=== PATIENT | male | born 1965 | race Caucasian/White ===

== ENCOUNTER 2025-04-12 13:06 | Inpatient (IN) | payer OTHER, SELFPAY ==
[2025-04-12 09:50] VITALS: BP 139/84
[2025-04-12 10:17] LABS: Hematocrit 37.2 % (39.0-52.0); Hemoglobin 12.0 g/dL (13.0-18.0); Mean Corp Hgb Conc. 32.3 g/dL (33.0-37.0); Mean Corpuscular Volume 77.2 fL (80.0-94.0); Nucleated Red Blood Cells % 0 % (-); Platelet Count 166 10^3/uL (130-400); Red Cell Dist. Width 20.8 % (11.5-14.5)
[2025-04-12 10:45] VITALS: BP 120/77
[2025-04-12 10:45] LABS: ALT (SGPT) 10 U/L (0-50); AST (SGOT) 15 U/L (17-59); Albumin 4.3 g/dl (3.5-5.0); Alkaline Phosphatase 84 U/L (38-126); Blood Urea Nitrogen 17 mg/dl (9-20); Calcium 8.9 mg/dl (8.4-10.2); Carbon Dioxide 23 mmol/L (22-30); Chloride 108 mmol/L (98-107); Glucose 116 mg/dl (70-99); Potassium 4.0 mmol/L (3.5-5.1); Sodium 137 mmol/L (135-145); Total Protein 6.6 g/dl (6.3-8.2); eGFR > 60.00
[2025-04-12 10:48] LABS: Troponin I < 0.012 ng/ml
[2025-04-12 10:49] VITALS: BMI 50.7
--- NOTE | 2025-04-12 10:50 | ED.GENMED ---
History of Present Illness
General
Chief Complaint: Breathing Problem
Time Seen by Provider: 04/12/25 10:39
History of Present Illness
History of Present Illness:
59-year-old male with history of COPD presents to the emergency department for evaluation of shortness of breath as well as swelling and redness to the right chest wall. He was admitted to [facility] on April 02 for several days due to
COVID-19 and a COPD exacerbation, was discharged on April 06 however on April 07 states he was readmitted to the emergency [place] due to worsening shortness of breath. He completed a course of steroids yesterday. Still feels short of breath
and unable to take a deep breath. Frequent dry coughing as well. Additionally he notes that over the past 2 days he has developed increasing redness and swelling to the right chest wall with exquisite pain. No fevers or chills.
Review of Systems
Review of Systems
Allergies reviewed?: Yes
All Other Systems: ROS reviewed and negative except as documented in HPI and ROS
Phy Exam
Physical Exam
Physical Exam:
GEN: Well appearing, NAD, WDWN
HEENT: Oral mucosa moist, no scleral icterus
Cardiac: Regular rate and rhythm, no murmur
Lung: Tachypneic, expiratory wheezes and prolonged expiratory phase heard throughout all lung sanchez, no rhonchi or rales
MSK: No gross deformity or injuries. Right chest wall erythema with superficial ulcerated wound, erythema extends several centimeters away from the central site with palpable induration exquisitely tender to palpation
Skin: Good color, no pallor or jaundice, papular lesions widespread throughout the torso bilaterally
Neuro: AO x3, moves all extremities freely
Psych: Calm, cooperative
Scores
Heart Failure Risk
Heart Failure Risk Score: Not Applicable
Course
Orders/Labs/Results
Orders:
Orders
04/12/25 09:57
Electrocardiogram (*1) Urgent
Reason for Study: Shortness of Breath
07/30/25 10:09
Complete Blood Count/With Diff Urgent
Comprehensive Metabolic Panel Urgent
Troponin I Urgent
04/12/25 10:49
CT Chest With Iv Contrast Urgent
Comment:
Reason For Exam: R chest wall abscess
HYDROmorphone [Dilaudid] 0.5 mg IV NOW STA
Ipratropium/Albuterol Sulfate [Duoneb] 3 ml INH R NOW ONE
04/12/25 11:42
HYDROmorphone [Dilaudid] 0.5 mg IV NOW STA
04/12/25 11:49
Vancomycin [Vancocin] 2,000 mg 0.9% Sodium Chloride 500 ml [Nss] 500 ml IV NOW
04/12/25 12:27
Admit/Transfer Patient As Directed
Co-Sign Provider:
Level of Care: Inpatient admission
Assign to:: Medical/Surgical
Physician / Group: CONSTANTIN
Diagnosis: RIGHT CHEST WALL
Reason for Hospitalization: RIGHT CHEST CELLULITIS
Expected length of stay greater than two midnights?: Yes
ELOS- Estimated Length of Stay in days: 3
I certify the patient meets the requirements for IP care: Yes
04/12/25 12:28
Code Status As Directed
Resuscitation Status: Full Code
PRN Pain Medication Management As Directed
May give lesser potent ordered pain med per pt: Yes
preference::
Protocol:: Medication orders for pain may be administered in a
manner that supports deferring to patient preference
when the pt is:
- Requesting an ordered lesser potent pain medication.
Least to most potent pain medications are defined
as: acetaminophen < NSAID < tramadol < opioids
(morphine, oxycodone, hydromorphone).
- Requesting a lesser dose of the same medication IF
ORDERED.
- Requesting a less intrusive route of administration
if both routes are prescribed by the provider (PO <
IV).
04/12/25 12:30
HYDROmorphone [Dilaudid] 1 mg IV Q4HPRN PRN
04/12/25 14:19
Activity As Directed
Activity Level: Out of Bed-Early Mobility
Intake/ Output As Directed
Frequency: Per unit guidelines
Vital Signs As Directed
Frequency: Per unit guidelines
DX Deep Vein Thrombosis Video Routine
04/12/25 16:00
Ipratropium/Albuterol Sulfate [Duoneb] 3 ml INH R Q4HPRN PRN
Abnormal Lab Results
04/12/25
10:09
Hgb 12.0 L g/dL
(13.0-18.0)
Hct 37.2 L %
(39.0-52.0)
MCV 77.2 L fL
(80.0-94.0)
MCH 24.9 L pg
(27.0-31.0)
MCHC 32.3 L g/dL
(33.0-37.0)
RDW 20.8 H %
(11.5-14.5)
MPV 10.5 H fL
(7.4-10.4)
Abs Immat Gran (auto) 0.1 H 10^3/uL
(0-0.05)
Absolute Monos (auto) 0.7 H 10^3/uL
(0.1-0.6)
Immature Gran % 1.2 H %
(0-0.5)
Chloride 108 H mmol/L
(98-107)
Glucose 116 H mg/dl
(70-99)
AST 15 L U/L
(17-59)
04/12/25 10:09
04/12/25 10:09
Vital Signs
Initial and Last Documented VS:
Initial Vital Signs
Temp Pulse Resp BP Pulse Ox
97.8 F 62 18 139/84 98
04/12/25 09:50 04/12/25 09:50 04/12/25 09:50 04/12/25 09:50 04/12/25 09:50
Last Documented Vital Signs
Temp Pulse Resp BP Pulse Ox
97.8 F 53 20 134/69 99
04/12/25 15:00 04/12/25 15:00 04/12/25 15:00 04/12/25 15:00 04/12/25 15:00
MDM/Problems Addressed
MDM/Problems Addressed:
Patient with large cellulitic area to the right chest with open wound, given that he was just hospitalized this is concerning for possible MRSA, will admit for IV antibiotics
Comment
Comment:
EKG independently interpreted by me shows sinus bradycardia at a rate of [address] changes concerning for ischemia
*Pulse Oximetry
SaO2: 98
Oxygen Mode of Delivery: Room air
Patient hypoxic: no
*Critical Care Note
Total Time (30-74mins, 75-104mins- exclusive of procedures): Not Applicable
ED Attending Note
-
Portions of this chart may have been created with voice recognition software.� Occasional wrong word or��sound alike� substitutions may have occurred due to the inherent limitations of voice recognition software.
Discharge Plan
Departure
Patient Disposition: Admit
Date of Disposition: 04/12/25
Time of Disposition: 11:44
Admit to: Med/Surg
Presentation/result/management discussed w/ accepting MD/DO: Hospitalist
Discharge Problem:
Cellulitis of chest wall, COPD (chronic obstructive pulmonary disease)
Interventions
Interventions:
*Risk Screen - Suicide Last Done: 04/12/25 09:50
*General Assessment Last Done: 04/12/25 09:50
*Neglect/Abuse Screening Last Done: 04/12/25 12:21
*ED- Fall Risk Assessment Last Done: 04/12/25 10:49
*ED COVID-19 Vaccine History Last Done: 04/12/25 10:49
*Nursing Disposition Last Done: 04/12/25 14:10
ED- Cardiac Assessment Last Done: 04/12/25 10:49
ED- Pulmonary Assessment Last Done: 04/12/25 10:49
Discharge Date and Time
Discharge Date/Time: 04/12/25 14:16
[2025-04-12] MEDS: DILAUDID 0.5 MG IV ×2 (11:02→11:50)
[2025-04-12] MEDS: DUONEB 3 ML INH (11:49)
[2025-04-12] MEDS: VANCOCIN 540 MG IV (12:01)
--- NOTE | 2025-04-12 12:02 | PHANOTE ---
med rec note- called [facility] pharmacy [phone] but they stated he did not have an epic chart or filled anything. also called patient md viky valladares who last prescribed patient medication but they asked me leave a message for the nurse
line and awaiting called. patient pharmacy record show medication last in October
--- NOTE | 2025-04-12 12:07 | HPS.HSE ---
Family Physician
-
Family Physician: El Murray MD
Chief Complaint
-
right chest wall abscess
History of Present Illness
59-year-old male with history of COPD,atrial fib/flutter, bipolar presents to the emergency department for evaluation of right chest wall abscess which he noticed on Thursday night. first it was a pimple, which he itched and scratched and tried to
squeeze the pus out. but the wound got bigger and the redness spreaded around the wound. it is extremely painful. denied fever, chills, still with sob and cough, denied HAWKINS,dizzy or syncope. denied abdominal pain,n,v. he has diarrhea which is
resolving. denied dysuria or hematuria. He was admitted to [facility] on April 02 for several days due to COVID-19 and a COPD exacerbation, was discharged on April 07 however on April 07 states he was readmitted to the emergency [place]
hospital due to worsening shortness of breath. He completed a course of steroids yesterday.
Patient received 2 doses of Dilaudid, nebs, Vanco in the ER. Admitting for further management
Medical History
Past Medical History
Past Medical History: Reports Other
Additional Past Medical History:
COPD, A-fib/flutter, bipolar
Past Surgical History: Reports Other
Additional Past Surgical History:
Left knee replacement, left shoulder surgery, appendectomy, gastric bypass
Social History
Tobacco: Former Smoker
Alcohol: Former
Family History
Family History: Not pertinent
Allergies / Home Medications
Allergies reflects when Allergies were last updated in [employer].
Home Medications with original date entered in [employer]
Allergy/Medication List:
Allergies
Allergy/AdvReac Type Severity Reaction Status Date / Time
daptomycin Allergy rhabdo Verified 04/12/25 09:54
Review of Systems
-
Constitutional: Reports No Symptoms
EENT: Reports No Symptoms
Respiratory: Reports Cough and Trouble Breathing
Cardiac: Reports No Symptoms
Abdomen/GI: Reports No Symptoms
: Reports No Symptoms
Musculoskeletal: Reports No Symptoms
Skin: Reports Other (Right chest wall wound with redness around)
Neurological: Reports No Symptoms
Endocrine: Reports No Symptoms
Hematologic/Lymphatic: Reports No Symptoms
Psych: Reports No Symptoms
Physical Exam
Vital Signs
Vital Signs
Temp Pulse Resp BP Pulse Ox
97.8 F 62 18 139/84 98
04/12/25 09:50 04/12/25 09:50 04/12/25 09:50 04/12/25 09:50 04/12/25 10:52
Physical Exam
General: Well Developed, Well Nourished and No Apparent Distress
HEENT: NormoCephalic, Moist mucous membranes and Atraumatic
Respiratory: Clear
Cardiac: S1/S2 and Regular Rhythm; No Murmur or Rub
GI: Soft, Non Tender, Non Distended and Normal Bowel Sounds; No Organomegaly
Rectal: Deferred by Provider
Musculoskeletal: No Clubbing, No Cyanosis and No Edema
Skin: Rash and Other (Right chest wall redness with small wound)
Neuro: AO x 3 and Nonfocal/grossly intact
Psych: Calm
Laboratory Results
-
04/12/25 10:09
04/12/25 10:09
Laboratory Results
Total Bilirubin 1.0 mg/dl (0.2-1.3) 04/12/25 10:09
AST 15 U/L (17-59) L 04/12/25 10:09
ALT 10 U/L (0-50) 04/12/25 10:09
Alkaline Phosphatase 84 U/L (38-126) 04/12/25 10:09
Troponin I < 0.012 ng/ml 04/12/25 10:09
Data Reviewed
-
CT Scan: Report Reviewed by me
Lab Data: Labs Reviewed by me
Impression/Plan
-
# Chest wall cellulitis
- IV Vanco continued
- Chest CT with impression of Right chest wall findings most suggestive of cellulitis as above. No abscess formation is identified.
2. No acute pulmonary process identified.
3. Approximately 4 mm nodule along the left major fissure. Given the size and position along the fissure, highly likely to have a benign etiology such as fissural lymph node.
4. Aneurysmal dilation ascending aorta, 4.4 cm diameter.
5. Right adrenal adenoma and probable subcentimeter left adrenal adenoma as above.
6. Splenomegaly.
- Tylenol, Dilaudid as needed for fever and pain
# History of COPD
# Recent COVID
- Continue to monitor
-NEBS PRN
# History of A-fib
- EKG with sinus bradycardia
- Continue to monitor
-Pradaxa, amiodarone, Cardizem continued
#iron def anemia
-ferrous sulfate continued
# History of bipolar
-fluoxetine, Lamictal,olanzapine
#GERD
-PPI continued
#Essential HTN
-Lasix, spironolactone continued
#type 2 DM
-sliding sale
-hold monjuro, and metformin
-CHO diet
# DVT prophylaxis
- pradaxa
# CODE STATUS
- Full code
--- NOTE | 2025-04-12 12:40 | W.PN.UPDATE ---
Update Note
Progress Note Update
This is an addendum to the H&P written by Niels Harper on 04/11/2025. �Patient seen and examined independently with [employer].
59-year-old male past medical history of COPD, atrial flutter on Pradaxa, presenting with shortness of breath, redness of the right chest wall with pain. �Redness to the right chest wall started 2 days ago after he picked a pimple with some purulent
discharge. �No fevers or chills. �He did have diarrhea today.
Admitted at [facility] on April 10 for COVID-19/COPD exacerbation but readmitted at [facility] due to COPD again.. �He completed steroids today. �Still feels short of breath with dry cough.
Vital signs unremarkable. �Patient not hypoxemic. �On examination no wheezing. �He has redness of the chest with site of purulent pimple that has now dried.
CT chest shows right chest wall cellulitis. �Incidental 4 mm pulmonary nodule. �Aneurysmal dilatation of ascending aorta 4.4 cm. �Adrenal adenoma. �Splenomegaly.
Patient presenting with acute chest wall cellulitis. �Vancomycin. �Dilaudid for pain.
Continue DuoNebs for COPD. �Would not give further steroids at this time as lungs sound clear and not hypoxemic.
[2025-04-12 12:45] VITALS: BP 134/73
[2025-04-12] MEDS: DILAUDID 1 MG IV ×3 (12:57→21:27)
[2025-04-12 13:00] VITALS: BP 137/70
--- NOTE | 2025-04-12 14:26 | CM ---
CM reviewed chart and met with pt bedside in ED. He is currently living in a recovery house with 8 other men, has first floor BR/full BA. He states he was sober for 13 years but started drinking again several months ago. He has now been sober for
62 days.
Independent in ADLs, personal care and ambulation. No assistive devices.
Confirms prescription coverage.
PCP: El Murray
Pharmacy: [facility]
Anticipate DC back to recovery house, watch for needs
[2025-04-12 14:41] VITALS: BMI 50.7
[2025-04-12 15:00] VITALS: BP 134/69
--- NOTE | 2025-04-12 15:02 | PHA.VAN.IN ---
Assessment
- Assessment
Renal Function: Unknown baseline
AUC Dosing Plan
- Dosing Variables
Dosing Weight (kg): 160
Dosing CrCl (ml/min): 120
Vd coefficient (L/kg): 0.5
- Empiric Dosing
Initial / Loading Dose: 2000mg - 04/12 12:01
Maintenance Regimen: Vanc 1750mg Q12H starting 04/13 0600
Estimated AUC (mcg*h/mL): 465
Estimated Peak (mcg*h/mL): 30.7
Estimated Trough (mcg/ml): 10.8
Estimated Half Life (H): 6.7
- Monitoring
No levels ordered at this time: consider levels in next few days
Pharmacokinetics Vancomycin I
- -
Patient Age: 59
Patient Sex: Male
Vancomycin Day #: 1
Indication: Skin And Soft Tissue
Requesting Provider: Rosalva Harper
Pertinent Antimicrobial Allergies:
daptomycin - rhabdomyolysis
Height / Weight:
Height 5 ft 10 in
Actual Weight 160.3 kg
Pertinent Past Medical History: BMI ~51, DM 2
- Vital Signs / Lab Results
Temp Pulse Resp BP Pulse Ox
97.8 F 52 10 137/70 96
04/12/25 09:50 04/12/25 13:45 04/12/25 13:45 04/12/25 13:00 04/12/25 13:30
Lab Results - Hematology
04/12/25
10:09
WBC 9.2
Lab Results - Chemistry
04/12/25
10:09
BUN 17
Creatinine 1.0
Albumin 4.3
--- NOTE | 2025-04-12 15:16 | CM ---
CM consult received for Advanced Directive. Advanced Directive forms provided to the patient.
[2025-04-12 15:52] VITALS: BMI 48.5
[2025-04-12] MEDS: LASIX 40 MG PO (16:22)
[2025-04-12 17:15] LABS: Glucose - Point of Care 296 mg/dl (70-99)
[2025-04-12] MEDS: NOVOLOG FLEXPEN-LOW RESISTANCE 3 UNITS SC (18:27)
[2025-04-12] MEDS: PRADAXA 75 MG PO (20:00)
[2025-04-12] MEDS: PERCOCET 5/325 2 TABLET PO (20:01)
[2025-04-12] MEDS: CARDIZEM CD 240 MG PO (20:01)
[2025-04-12] MEDS: SYMBICORT 160/4.5 MCG INHALER 2 PUFF INH (20:10)
[2025-04-12 22:15] LABS: Glucose - Point of Care 140 mg/dl (70-99)
[2025-04-12 23:26] VITALS: BP 108/73
[2025-04-13] MEDS: PERCOCET 5/325 2 TABLET PO ×6 (00:08→23:40)
[2025-04-13] MEDS: VANCOCIN 535 MG IV ×2 (05:01→17:26)
[2025-04-13 07:00] VITALS: BP 132/60
[2025-04-13 07:10] LABS: Glucose - Point of Care 174 mg/dl (70-99)
--- NOTE | 2025-04-13 08:06 | PHA.VAN.FU ---
Vancomycin Assessment / Plan
- Assessment
Renal Function: No New Labs Today
In the past 24 hrs, patient has been: Afebrile
- Dosing Plan
Continue: Vanc 1750mg Q12H
- Monitoring Plan
No level(s) ordered at this time: consider levels in next few days
- Follow Up
Pharmacy will continue to follow.
Vancomycin Follow UP
- -
Patient Age: 59
Patient Sex: Male
Vancomycin Day #: 2
Indication: Skin And Soft Tissue
Requesting Provider: Rosalva Harper
Pertinent Antimicrobial Allergies:
daptomycin - rhabdomyolysis
Height / Weight:
Height 5 ft 10 in
Actual Weight 153.36 kg
Pertinent Past Medical History: BMI ~51, DM 2
- Vital Signs / Lab Results
Temp Pulse Resp BP Pulse Ox
98.0 F 52 18 132/60 99
04/13/25 07:00 04/13/25 07:00 04/13/25 07:00 04/13/25 07:00 04/13/25 07:00
Lab Results - Hematology
04/12/25
10:09
WBC 9.2
Lab Results - Chemistry
04/12/25
10:09
BUN 17
Creatinine 1.0
Albumin 4.3
[2025-04-13] MEDS: SYMBICORT 160/4.5 MCG INHALER 2 PUFF INH ×2 (08:58→19:43)
[2025-04-13] MEDS: SPIRIVA RESPIMAT 2.5 MCG 2 PUFF INH (08:58)
[2025-04-13] MEDS: NOVOLOG FLEXPEN-LOW RESISTANCE 1 UNITS SC ×3 (09:32→17:26)
[2025-04-13] MEDS: LAMICTAL 300 MG PO (09:33)
[2025-04-13] MEDS: ALDACTONE 25 MG PO (09:33)
[2025-04-13] MEDS: PRADAXA 75 MG PO ×2 (09:33→19:41)
[2025-04-13] MEDS: PROTONIX 40 MG PO (09:33)
[2025-04-13] MEDS: FEOSOL 325 MG PO (09:34)
[2025-04-13] MEDS: ZYPREXA 5 MG PO (09:34)
[2025-04-13] MEDS: LASIX 40 MG PO ×2 (09:34→15:55)
[2025-04-13] MEDS: PROZAC 20 MG PO (09:34)
[2025-04-13] MEDS: CRESTOR 10 MG PO (09:34)
[2025-04-13] MEDS: ZYPREXA 20 MG PO (09:34)
[2025-04-13] MEDS: CARDIZEM CD 240 MG PO (09:34)
[2025-04-13] MEDS: PACERONE 200 MG PO (09:35)
[2025-04-13 09:44] LABS: Glycohemoglobin (HgbA1c) 7.8 % (4.0-5.6)
[2025-04-13 10:45] LABS: Vitamin B12 346 pg/ml (239-931)
[2025-04-13 12:22] LABS: Glucose - Point of Care 175 mg/dl (70-99)
--- NOTE | 2025-04-13 13:36 | W.PN.HOSP.TC ---
Today's Communication/Plan
-
Continue vancomycin
MRSA screen
Surgical consult to see if I&D is needed
Discontinue IV Dilaudid
Assessment / Plan
Assessment / Plan
59-year-old female with right chest wall abscess noted on Thursday. Placed started like a pimple and then got bigger. He was admitted to [facility] on April 02 due to COVID and COPD exacerbation and was discharged on April 07. He was then
readmitted to [facility] due to shortness of breath and completed steroids recently.
CT chest-right chest wall findings consistent with cellulitis. No abscess. No acute pulmonary process. 4 mm nodule in the left major fissure. Aneurysmal dilatation of ascending aorta 4.4 cm. Right adrenal adenoma and probable subcentimeter left
adrenal adenoma. Splenomegaly.
EKG sinus bradycardia
CVS: S1-S2 normal
Chest: CTA B/L
Abdomen: Soft, NT / Bowel sounds present
Extremities:
# Chest wall cellulitis with a small wound.
Patient has a lot of pain there therefore we will request surgery to see if an I&D is needed
Vancomycin
Wound cultures if possible
Surgical consult
# Recent COVID-19 infection-tested positive on 04/02/2025 treated with remdesivir per patient
# COPD with recent exacerbation completed steroids
Continue Breztri or equivalent, albuterol
# Paroxysmal atrial fibrillation-continue Pradaxa, amiodarone, Cardizem
# Iron deficiency anemia
# Hypertension
# Diabetes-hemoglobin A1c- 7.8
Hold Mounjaro and metformin
Accu-Cheks and sliding scale coverage
# Hyperlipidemia-continue statin
# 4 mm pulmonary nodule-outpatient follow-up
# Aneurysmal dilatation of ascending aorta 4.4 cm-outpatient follow-up
# Adrenal adenoma-outpatient follow-up
# Bipolar disease-continue fluoxetine, Lamictal, olanzapine
# Alcohol abuse-sober for over 2 months now. Goes to meetings and he is in a group house
# Obesity with a BMI of 48.5-on Mounjaro 7.5 mg every week as outpatient
History of gastric bypass 2004
With history of gastric bypass in B12 being 345 will replace
# DVT prophylaxis-Pradaxa
# CODE STATUS-full code
Part of this note was created using voice recognition system. Occasional wrong word or��sound alike� substitutions may have inadvertently occurred due to the inherent limitations of voice recognition software. If noted kindly bring it to my
attention for correction.
Anticipated Discharge: 24 - 48 hours
Subjective/Interval History
-
Date of Service: April 13, 2025
Objective Data
-
Vital Signs:
Vital Signs
Temp Pulse Resp BP Pulse Ox
98.0 F 67 16 132/60 99
04/13/25 07:00 04/13/25 09:09 04/13/25 09:09 04/13/25 07:00 04/13/25 09:09
I&O
04/12/25 04/13/25 04/14/25
06:59 06:59 06:59
Intake Total 1080 / 1080
Balance 1080 / 1080
[2025-04-13] MEDS: DILAUDID 0.5 MG IV (15:31)
--- NOTE | 2025-04-13 15:32 | CM ---
Chart reviewed; Anticipated Discharge: 24 - 48 hours. Case Management will continue to monitor for discharge needs and support once identified
[2025-04-13] MEDS: XYLOCAINE 2% WITH EPINEPHRINE 20 ML INFIL (15:38)
[2025-04-13 15:50] VITALS: BP 136/65
--- NOTE | 2025-04-13 15:56 | CON.GS ---
Addendum entered and electronically signed by Wiliam Paredes MD 04/13/25 16:16:
Patient seen and examined with surgical SURVEY WORKERS SUPERVISOR. Agree with documented consultation note with additions noted here.
HPI: 59-year-old male with recent hospitalization due to COVID-pneumonia and subsequent hospitalization [facility] with shortness of breath. He recently moved at the [facility] in a recovery house in [place] and presented for emergency
department evaluation the other day due to worsening redness and tenderness along his right anterior lateral chest. Started as a pimple and pain as well as swelling which has continued to progress. It has not improved despite admission to the
hospital with IV antibiotics initiated yesterday, 24 hours ago.
AFVSS
NAD AAO x 3
Skin examination of the right chest wall reveals an area of spreading erythema extending towards the right axillary area and midline. There is a central area of skin eschar and firm induration with suspected fluctuance. Tender to the touch
limiting examination.
CT chest imaging was completed yesterday. Images personally reviewed as well as radiologist report. Over the area of concern there does appear to be thickening of the skin and some inflammatory striping going into the subcutaneous tissues but no
well organized abscess.
Assessment/plan: 59-year-old male with right chest cellulitis and suspected developing subcutaneous abscess/boil.
Given degree of induration and spreading erythema recommended bedside incision and drainage for more definitive source control and management particularly as there has not been significant improvement despite IV antibiotics over the last 24 hours.
Anticipated procedure was fully reviewed in detail with the patient including alternative treatment options, site of surgical incision, benefits and potential risks primarily as a relates to bleeding on Pradaxa. That being said the patient says he
has not encountered significant bleeding troubles with his Pradaxa use bumps or bruises or skin cuts.
Verbal consent was obtained. See update note for procedure details.
Original Note:
Medical History
-
Chief Complaint: pain at skin lesion to chest
History of Present Illness:
Mr Zeng is a 59 yo male with a h/o NIDDM, Afib on Pradaxa and COPD with recent admission to [facility] on April 02 for several days due to COVID-19 and a COPD exacerbation, was discharged on April 07 however on April 07 states he was
readmitted to the emergency [place] [facility] due to worsening shortness of breath. He completed a course of steroids just prior to admission. He recently moved to the area and presented through with pain and erythema to his right upper chest
which initially began as a pimple around Thursday and increased in size. He notes severe pain to site with induration present extending from a small pea sized crusted wound out circumferencially by about 2 inches with surrounding erythema down to the
right axilla. He denies associated fevers or chills.
Past Medical History
Past Medical History: Arrhythmias (afib), COPD, NIDDM, Psychiatric (bipolar) and Other (morbid obesity)
Past Surgical History: Appendectomy, Bariatric (bypass) and Orthopedic (Left knee replacement, left shoulder surgery)
Social History
Tobacco: Former Smoker
Alcohol: Former (quit 2 months ago)
Drug: None
Family History
Family History: Reviewed & Not Pertinent
Allergies / Home Medications
Allergy/AdvReac Type Severity Reaction Status Date / Time
daptomycin Allergy rhabdo Verified 04/12/25 09:54
�Medication �Instructions �Recorded �Confirmed �Type
albuterol 90 mcg-budesonide 80 2 inh inhalation Q6HPRN PRN 04/12/25 04/12/25 History
mcg/actuation HFA aerosol inhaler shortness of breath
(Airsupra)
albuterol sulfate 2.5 mg/0.5 mL 5 mg inhalation Q6H PRN shortness 04/12/25 04/12/25 History
solution for nebulization of breath
amiodarone 200 mg tablet 200 mg PO DAILY Blood Clot 04/12/25 04/12/25 History
Prevention/Tx
budesonide 160 mcg-glycopyr 9 2 inh inhalation BID 04/12/25 04/12/25 History
mcg-formot 4.8 mcg/actuation HFA Lung/Breathing Issues
inhaler (Breztri Aerosphere)
dabigatran etexilate 75 mg capsule 75 mg PO BID Blood Clot 04/12/25 04/12/25 History
(Pradaxa) Prevention/Tx
diltiazem HCl 240 mg capsule,24 240 mg PO BID Blood Pressure 04/12/25 04/12/25 History
hr,extended release
ferrous sulfate 325 mg (65 mg 325 mg PO Q48H Supplement 04/12/25 04/12/25 History
iron) tablet
fluoxetine 20 mg tablet 20 mg PO DAILY Fluid 04/12/25 04/12/25 History
Retention/Swelling
furosemide 40 mg tablet (Lasix) 40 mg PO BID@0800,1600 Fluid 04/12/25 04/12/25 History
Retention/Swelling
metformin 500 mg tablet 500 mg PO BID@0800,1700 Diabetes 04/12/25 04/12/25 History
olanzapine 20 mg-samidorphan 10 mg 1 tab PO DAILY Mental 04/12/25 04/12/25 History
tablet (Lybalvi) Health/Anxiety
pantoprazole 40 mg tablet,delayed 40 mg PO DAILY Gastrointestinal 04/12/25 04/12/25 History
release (Protonix) Issue
rosuvastatin 10 mg tablet (Crestor) 10 mg PO DAILY High Cholesterol 04/12/25 04/12/25 History
spironolactone 25 mg tablet 25 mg PO DAILY Fluid 04/12/25 04/12/25 History
Retention/Swelling
tirzepatide 7.5 mg/0.5 mL 7.5 mg SC QWEEK 04/12/25 04/12/25 History
subcutaneous pen injector
(Mounjaro)
Review of Systems
-
History Source: Patient
All other systems: Negative unless noted
A 10 point review of systems was completed, and was negative except as per HPI.
Physical Exam
Vital Signs
Temp Pulse Resp BP Pulse Ox
98.0 F 67 16 132/60 99
04/13/25 07:00 04/13/25 09:09 04/13/25 09:09 04/13/25 07:00 04/13/25 09:09
04/12/25 04/13/25 04/14/25
06:59 06:59 06:59
Actual Weight 153.36 kg
Body Mass Index (BMI) 48.5
Lab Results
04/12/25 10:09
04/12/25 10:09
WBC 9.2 10^3/uL (4.8-10.8) 04/12/25 10:09
Hgb 12.0 g/dL (13.0-18.0) L 04/12/25 10:09
Hct 37.2 % (39.0-52.0) L 04/12/25 10:09
Plt Count 166 10^3/uL (130-400) 04/12/25 10:09
Abs Immat Gran (auto) 0.1 10^3/uL (0-0.05) H 04/12/25 10:09
Neutrophils % 69.6 % (42.2-75.2) 04/12/25 10:09
Physical Exam
General: Well Developed and Well Nourished
HEENT: Moist Mucous Membranes
Respiratory: Non Labored Respirations
GI: Soft, Non Tender and Obese
Skin: Other (Wound to right chest with crusting at center of wound and surrounding induration, ?fluctuance. Erythema extending into right axilla)
Neuro: Awake, Alert and AO x 3
Psych: Other (anxious)
Data Reviewed
-
CT Scan: Image Personally Visualized and interpreted, Report Reviewed by me, Discussed with Physician, Discussed with Nurse and Discussed with Patient
Labs: Labs Reviewed by me, Discussed with Physician, Discussed with Nurse and Discussed with Patient
Assessment / Plan
-
59 yo diabetic male s/p recent hospitalizations x2 with covid and copd exacerbations with recent steroid use now presenting with cellulitis to the right upper chest with indurated wound. CT chest reviewed without discreet collection present, soft
tissue changes secondary to cellulitis present. AFVSS. No leukocytosis present on admission.
Plan:
I&D at bedside (see separate procedure note from surgeon)
Cultures collected at time of I&D
Continue with antibiotics (on Vancomycin)
Medical management as per primary team
--- NOTE | 2025-04-13 16:16 | W.PN.SURGUPD ---
Surgical Update
Surgical Update
Simple incision and drainage right chest boil/abscess performed.
The area was sterilely cleansed with Betadine swabs.
A total of 20 mL of 1% lidocaine with epinephrine was infiltrated for a local field block.
Utilizing an 11 blade a 2 cm vertically oriented incision was made through the area of skin necrosis entering into a subcutaneous abscess cavity.
Cultures were obtained both anaerobic and aerobic.
The deep subcutaneous space was carefully probed bluntly with hemostat and 4 x 4 gauze to ensure adequate drainage and that there were no additional undrained abscess cavities.
The open space was then packed with the tip of a 4 x 4 gauze and hemostasis was observed.
Dry gauze dressing placed over top.
Patient tolerated the procedure well.
Will perform first packing change tomorrow at bedside
[2025-04-13 17:20] LABS: Glucose - Point of Care 195 mg/dl (70-99)
[2025-04-13] MEDS: CYANOCOBALAMIN 1000 MCG IM (17:26)
[2025-04-13] MEDS: CARDIZEM CD PO (19:40)
[2025-04-13 21:50] LABS: Glucose - Point of Care 192 mg/dl (70-99)
[2025-04-13 23:21] VITALS: BP 117/67
[2025-04-14] MEDS: PERCOCET 5/325 2 TABLET PO ×5 (04:17→21:46)
[2025-04-14] MEDS: VANCOCIN 535 MG IV ×2 (06:00→16:52)
[2025-04-14 07:33] LABS: Hematocrit 36.6 % (39.0-52.0); Hemoglobin 11.8 g/dL (13.0-18.0); Mean Corp Hgb Conc. 32.2 g/dL (33.0-37.0); Mean Corpuscular Volume 77.9 fL (80.0-94.0); Platelet Count 141 10^3/uL (130-400); Red Cell Dist. Width 20.2 % (11.5-14.5)
[2025-04-14 07:37] LABS: Glucose - Point of Care 156 mg/dl (70-99)
[2025-04-14] MEDS: PROZAC 20 MG PO (07:55)
[2025-04-14] MEDS: ZYPREXA 5 MG PO (07:55)
[2025-04-14] MEDS: ALDACTONE 25 MG PO (07:55)
[2025-04-14] MEDS: LAMICTAL 300 MG PO (07:55)
[2025-04-14] MEDS: LASIX 40 MG PO ×2 (07:56→16:53)
[2025-04-14] MEDS: PROTONIX 40 MG PO (07:56)
[2025-04-14] MEDS: PRADAXA 75 MG PO (07:56)
[2025-04-14] MEDS: PACERONE 200 MG PO (07:56)
[2025-04-14] MEDS: ZYPREXA 20 MG PO (07:56)
[2025-04-14] MEDS: CRESTOR 10 MG PO (07:56)
[2025-04-14] MEDS: CARDIZEM CD 240 MG PO ×2 (07:57→20:13)
[2025-04-14] MEDS: NOVOLOG FLEXPEN-LOW RESISTANCE 1 UNITS SC ×3 (07:58→16:53)
[2025-04-14 08:00] VITALS: BP 124/63
[2025-04-14] MEDS: CYANOCOBALAMIN 1000 MCG IM (08:03)
[2025-04-14] MEDS: SPIRIVA RESPIMAT 2.5 MCG 2 PUFF INH (08:24)
[2025-04-14] MEDS: SYMBICORT 160/4.5 MCG INHALER 2 PUFF INH ×2 (08:24→18:23)
[2025-04-14 08:28] LABS: Blood Urea Nitrogen 14 mg/dl (9-20); Calcium 8.7 mg/dl (8.4-10.2); Carbon Dioxide 26 mmol/L (22-30); Chloride 102 mmol/L (98-107); Estimated Creatinine Clearance > 125 ml/min; Glucose 149 mg/dl (70-99); Potassium 4.2 mmol/L (3.5-5.1); Sodium 134 mmol/L (135-145); eGFR > 60.00
--- NOTE | 2025-04-14 10:42 | W.PN.HOSP.TC ---
Addendum entered and electronically signed by Josefa Huertas MD 04/14/25 11:52:
Highest dose on Zyprexa on Lybalvi is 20 mg therefore changed Zyprexa order to 20 mg
Addendum entered and electronically signed by Josefa Huertas MD 04/14/25 11:49:
We cannot use Lybalvi as samidorphan cannot be used with Percocets. Patient needs it for pain control now.
Continue olanzapine
Patient confirms that he is on 150 mg of Pradaxa twice daily now.
He is also confirming that he is not on Lamictal anymore therefore discontinued
Original Note:
Today's Communication/Plan
-
Packing of the wound
Continue IV antibiotics
Await wound cultures
May need visiting nurse to be arranged for dressing changes once discharged
Get records from [facility]
Texted pharmacy regarding medicines
Assessment / Plan
Assessment / Plan
59-year-old female with right chest wall abscess noted on Thursday. Placed started like a pimple and then got bigger. He was admitted to [facility] on April 02 due to COVID and COPD exacerbation and was discharged on April 07. He was then
readmitted to [facility] due to shortness of breath and completed steroids recently.
CT chest-right chest wall findings consistent with cellulitis. No abscess. No acute pulmonary process. 4 mm nodule in the left major fissure. Aneurysmal dilatation of ascending aorta 4.4 cm. Right adrenal adenoma and probable subcentimeter left
adrenal adenoma. Splenomegaly.
EKG sinus bradycardia
Right chest wall-status post I&D site noted with packing removed with no discharge noted reviewed with surgery at bedside
# Chest wall cellulitis with a small wound.
Status post I&D by Dr. Paredes on 04/13/2025
Continue packing
Vancomycin
Wound cultures With gram-positive cocci
# Recent COVID-19 infection-tested positive on 04/02/2025 treated with Remdesivir per patient
# COPD with recent exacerbation completed steroids
Continue Breztri , Airspura or equivalent
# Paroxysmal atrial fibrillation-continue Pradaxa, amiodarone, Cardizem
# Iron deficiency anemia
# Diabetes-hemoglobin A1c- 7.8
Hold Mounjaro and continue metformin
Accu-Cheks and sliding scale coverage
# Hyperlipidemia-continue statin
# 4 mm pulmonary nodule-outpatient follow-up
# Aneurysmal dilatation of ascending aorta 4.4 cm-outpatient follow-up
# Adrenal adenoma-outpatient follow-up
# Bipolar disease-continue fluoxetine, Lybalvi. Or equivalent. Does not look like patient was on Lamictal as outpatient. Stopped that
# Alcohol abuse-sober for over 2 months now. Goes to meetings and he is in a group house
# Obesity with a BMI of 48.5-on Mounjaro 7.5 mg every week as outpatient
History of gastric bypass 2004
With history of gastric bypass in B12 being 345 will replace
# DVT prophylaxis-Pradaxa
# CODE STATUS-full code
Discussed with surgeon at bedside
Discussed with nursing
Discussed with pharmacy
Get records from [facility]
Part of this note was created using voice recognition system. Occasional wrong word or��sound alike� substitutions may have inadvertently occurred due to the inherent limitations of voice recognition software. If noted kindly bring it to my
attention for correction.
Anticipated Discharge: Within 24 hours
Subjective/Interval History
-
Date of Service: April 14, 2025
Objective Data
-
Labs:
Laboratory Results
04/14/25
07:21
WBC 10.6
Hgb 11.8 L
Hct 36.6 L
Plt Count 141
Sodium 134 L
Potassium 4.2
Chloride 102
Carbon Dioxide 26
BUN 14
Creatinine 0.9
Glucose 149 H
Calcium 8.7
Vital Signs:
Vital Signs
Temp Pulse Resp BP Pulse Ox
99.3 F 64 14 124/63 96
04/14/25 08:00 04/14/25 08:33 04/14/25 08:33 04/14/25 08:00 04/14/25 08:33
I&O
04/13/25 04/14/25 04/15/25
06:59 06:59 06:59
Intake Total 1080 / 1080 3930 / 3930
Balance 1080 / 1080 3930 / 3930
--- NOTE | 2025-04-14 10:46 | W.PN.GS2 ---
Addendum entered and electronically signed by Wiliam Paredes MD 04/14/25 11:01:
Patient seen and examined with INDUSTRIAL COFFEE GRINDER. Agree with documented progress note with additions noted care.
Hospitalist at bedside as well.
Patient reports continued tenderness and discomfort in the right anterior chest region. Similar to previously but not worse.
AFVSS
NAD AAO x 3
Right superior anterior chest wall with persistent erythema and centralized induration surrounding I&D site. No purulence. No fluctuance. No detectable undrained pockets.
Saline moistened packing dressing replaced.
Assessment/plan: Right upper anterior chest cellulitis with associated abscess/boil now PPD #1 status post bedside I&D
No residual abscess component detectable on examination
Cellulitis persistent and not improving yet. Borders marked off with pen to better follow
Antibiotics per medical service
Cultures pending
Local wound care
Original Note:
Today's Communication / Plan
-
Local wound care
Assessment / Plan
-
59 yo diabetic male on Pradaxa for AF who presented with boil to right upper anterior lateral chest with surrounding erythema/induration now PPD #1 bedside I&D
AFVSS
No leukocytosis
Still with induration to site with surrounding erythema
Dressing changed at bedside, no further purulence from wound
Wound cx pending
Plan:
Continue IV abx
Dressing changes BID. Saline moistened gauze packing with overlying gauze pad.
Medical management as per primary team
Subjective Data
-
Date of Service: April 14, 2025
Pt seen and examined at bedside with Dr. Paredes. Pain improved to right chest but frame tender to area.
Objective Data
-
Intake and Output
04/13/25 04/14/25 04/15/25
06:59 06:59 06:59
Intake Total 1080 / 1080 3930 / 3930
Balance 1080 / 1080 393 / 393
Intake:
Oral fluids 1080 / 1079 2859 / 286
IV piggybacks 1070 / 1070
Other:
Number of approximated MODERATE 3 4
amounts of urine
Vital Signs
Temp Pulse Resp BP Pulse Ox
99.3 F 64 14 124/63 96
04/14/25 08:00 04/14/25 08:33 04/14/25 08:33 04/14/25 08:00 04/14/25 08:33
Lab Results
04/14/25 07:21
04/14/25 07:21
Calcium 8.7 mg/dl (8.4-10.2) 04/14/25 07:21
Total Bilirubin 1.0 mg/dl (0.2-1.3) 04/12/25 10:09
AST 15 U/L (17-59) L 04/12/25 10:09
ALT 10 U/L (0-50) 04/12/25 10:09
Alkaline Phosphatase 84 U/L (38-126) 04/12/25 10:09
Total Protein 6.6 g/dl (6.3-8.2) 04/12/25 10:09
Albumin 4.3 g/dl (3.5-5.0) 04/12/25 10:09
Physical Exam
-
NAD
Right chest wound with SSF on dressing (changed), induration with surrounding erythema noted (marked)
--- NOTE | 2025-04-14 12:41 | CM ---
Reviewed the chart notes and spoke with the patient at the bedside. CM consult for VN/homecare. Discussed area VNs. Patient selected VN. Referral sent in [facility]. CM continues to be available to patient/family and is monitoring medical
plan for needs at discharge.
Plan: Discharge to home with VN services.
--- NOTE | 2025-04-14 12:47 | PHA.VAN.FU ---
Vancomycin Assessment / Plan
- Assessment
Renal Function: Stable
WBC's are: WNL
In the past 24 hrs, patient has been: Afebrile
- Dosing Plan
Continue: Vanc 1750mg Q12H
- Monitoring Plan
Next Level Due (Date): consider levels in next few days
- Follow Up
Pharmacy will continue to follow.
Vancomycin Follow UP
- -
Patient Age: 59
Patient Sex: Male
Vancomycin Day #: 3
Indication: Skin And Soft Tissue
Requesting Provider: Rosalva Harper
Pertinent Antimicrobial Allergies:
daptomycin - rhabdomyolysis
Height / Weight:
Height 5 ft 10 in
Actual Weight 153.36 kg
Pertinent Past Medical History: BMI ~51, DM 2
- Vital Signs / Lab Results
Temp Pulse Resp BP Pulse Ox
99.3 F 64 14 124/63 96
04/14/25 08:00 04/14/25 08:33 04/14/25 08:33 04/14/25 08:00 04/14/25 08:33
Lab Results - Hematology
04/12/25 04/14/25
10:09 07:21
WBC 9.2 10.6
Lab Results - Chemistry
04/12/25 04/14/25
10:09 07:21
BUN 17 14
Creatinine 1.0 0.9
Estimated Creat Clear > 125
Albumin 4.3
Microbiology Results
04/13/25 15:43 Wound Culture - Preliminary
Chest - Right Staph aureus MRSA
Gram Stain - Preliminary
04/13/25 15:43 Anaerobic Culture - Preliminary
Chest - Right Culture pending. Anaerobic cultures are examined after 3
days incubation. Additional information to follow.
--- NOTE | 2025-04-14 14:49 | PTCARENOTE ---
wound culture came back '+' for MRSA. patient placed on contact precautions
[2025-04-14 15:50] VITALS: BP 102/63
[2025-04-14 16:08] VITALS: BP 102/63
[2025-04-14 16:47] LABS: Glucose - Point of Care 159 mg/dl (70-99)
[2025-04-14] MEDS: GLUCOPHAGE 500 MG PO (16:57)
[2025-04-14 17:00] LABS: Glucose - Point of Care 154 mg/dl (70-99)
[2025-04-14] MEDS: DILAUDID 0.5 MG IV (20:12)
[2025-04-14] MEDS: FLUSH (NSS) 2 FLUSH IV (20:13)
[2025-04-14] MEDS: PRADAXA 150 MG PO (20:14)
[2025-04-14 21:02] LABS: Glucose - Point of Care 181 mg/dl (70-99)
[2025-04-14 23:47] VITALS: BP 142/66
[2025-04-15] MEDS: PERCOCET 5/325 2 TABLET PO ×6 (02:22→23:24)
[2025-04-15] MEDS: VANCOCIN 535 MG IV ×2 (05:10→16:59)
[2025-04-15] MEDS: FLUSH (NSS) 2 FLUSH IV ×2 (05:12→17:00)
[2025-04-15 07:00] VITALS: BP 108/84
[2025-04-15 07:51] LABS: Glucose - Point of Care 142 mg/dl (70-99)
[2025-04-15] MEDS: SYMBICORT 160/4.5 MCG INHALER 2 PUFF INH ×2 (08:07→19:30)
[2025-04-15] MEDS: SPIRIVA RESPIMAT 2.5 MCG 2 PUFF INH (08:07)
--- NOTE | 2025-04-15 08:54 | PHA.VAN.FU ---
Vancomycin Assessment / Plan
- Assessment
Renal Function: Stable
WBC's are: WNL
In the past 24 hrs, patient has been: Afebrile
- Monitoring Plan
Peak Level: ordered for 04/15 @2200
Trough Level: ordered for 04/16 @05:30
- Follow Up
Pharmacy will continue to follow.
Vancomycin Follow UP
- -
Patient Age: 59
Patient Sex: Male
Vancomycin Day #: 4
Indication: Skin And Soft Tissue
Requesting Provider: Rosalva Harper
Pertinent Antimicrobial Allergies:
daptomycin - rhabdomyolysis
Height / Weight:
Height 5 ft 10 in
Actual Weight 153.36 kg
Pertinent Past Medical History: BMI ~51, DM 2
- Vital Signs / Lab Results
Temp Pulse Resp BP Pulse Ox
97.7 F 51 20 108/84 97
04/15/25 07:00 04/15/25 07:00 04/15/25 07:00 04/15/25 07:00 04/15/25 07:00
Lab Results - Hematology
04/12/25 04/14/25
10:09 07:21
WBC 9.2 10.6
Lab Results - Chemistry
04/12/25 04/14/25
10:09 07:21
BUN 17 14
Creatinine 1.0 0.9
Estimated Creat Clear > 125
Albumin 4.3
Microbiology Results
04/13/25 15:43 Wound Culture - Preliminary
Chest - Right Staph aureus MRSA
Gram Stain - Preliminary
04/13/25 15:43 Anaerobic Culture - Preliminary
Chest - Right Culture pending. Anaerobic cultures are examined after 3
days incubation. Additional information to follow.
--- NOTE | 2025-04-15 09:54 | W.PN.GS2 ---
Addendum entered and electronically signed by Wiliam Paredes MD 04/15/25 10:24:
Patient seen and examined with surgical PEDIATRIC OCCUPATIONAL THERAPIST. Agree with documented progress note.
Stable discomfort reported by patient. Not worse.
AFVSS
Right chest I&D dressing change. Erythema significantly improving and is now more localized to surrounding I&D site. Residual induration as expected. No fluctuance.
A/P: 59-year-old male with right chest wall MRSA boil/cellulitis
No further surgical intervention/procedures anticipated
Lightly packed skin opening with saline moistened gauze and change daily/as needed
Okay for discharge from surgical I&D/wound care standpoint
Surgical follow-up can be on an as-needed basis if concerns with outpatient wound healing
Original Note:
Today's Communication / Plan
-
local wound care/abx
Assessment / Plan
-
59 yo diabetic male on Pradaxa for AF who presented with boil to right upper anterior lateral chest with surrounding erythema/induration now PPD #2 bedside I&D
AFVSS
Erythema/cellulitis improved
Dressing changed at bedside, no further purulence from wound
Wound cx; +MRSA
Plan:
ABX as per primary team
Continue local wound care. Saline moistened gauze lightly packed into opening with overlying pad, change daily and prn
Outpatient surgical follow up prn
Medical management and final dispo as per primary team
Subjective Data
-
Date of Service: April 15, 2025
Pt seen and examined at bedside with Dr. Paredes. Wound to chest still sore and difficult to sleep d/t positioning but othwersie notes improvement. Denies fevers/chills.
Objective Data
-
Intake and Output
04/14/25 04/15/25 04/16/25
06:59 06:59 06:59
Intake Total 3930 / 3930 4375 / 4375
Output Total 0 / 2200
Balance 3930 / 3930 2175 / 2175
Intake:
Oral fluids 2860 / 2860 3840 / 3840
IV piggybacks 1070 / 1070 535 / 535
Output:
Urine, Voided 0 / 0
Other:
Number of approximated MODERATE 4 3
amounts of urine
Vital Signs
Temp Pulse Resp BP Pulse Ox
97.7 F 51 20 108/84 97
04/15/25 07:00 04/15/25 07:00 04/15/25 07:00 04/15/25 07:00 04/15/25 07:00
Lab Results
04/14/25 07:21
04/14/25 07:21
Calcium 8.7 mg/dl (8.4-10.2) 04/14/25 07:21
Total Bilirubin 1.0 mg/dl (0.2-1.3) 04/12/25 10:09
AST 15 U/L (17-59) L 04/12/25 10:09
ALT 10 U/L (0-50) 04/12/25 10:09
Alkaline Phosphatase 84 U/L (38-126) 04/12/25 10:09
Total Protein 6.6 g/dl (6.3-8.2) 04/12/25 10:09
Albumin 4.3 g/dl (3.5-5.0) 04/12/25 10:09
Physical Exam
-
NAD
Right chest wound with minimal SSF on dressing (changed), induration with surrounding erythema improved
[2025-04-15] MEDS: NOVOLOG FLEXPEN-LOW RESISTANCE SC ×3 (10:13→17:10)
[2025-04-15] MEDS: CARDIZEM CD 240 MG PO (10:14)
[2025-04-15] MEDS: PACERONE 200 MG PO (10:14)
[2025-04-15] MEDS: LASIX 40 MG PO ×2 (10:14→16:59)
[2025-04-15] MEDS: CRESTOR 10 MG PO (10:15)
[2025-04-15] MEDS: ALDACTONE 25 MG PO (10:15)
[2025-04-15] MEDS: FEOSOL 325 MG PO (10:15)
[2025-04-15] MEDS: PROZAC 20 MG PO (10:15)
[2025-04-15] MEDS: GLUCOPHAGE 500 MG PO ×2 (10:15→16:59)
[2025-04-15] MEDS: PRADAXA 150 MG PO ×2 (10:15→20:06)
[2025-04-15] MEDS: PROTONIX 40 MG PO (10:15)
[2025-04-15] MEDS: CYANOCOBALAMIN 1000 MCG IM (10:16)
[2025-04-15] MEDS: ZYPREXA 20 MG PO (10:16)
--- NOTE | 2025-04-15 11:05 | W.PN.HOSP.TC ---
Today's Communication/Plan
-
Continue IV antibiotics for today
Assessment / Plan
Assessment / Plan
59-year-old female with right chest wall abscess noted on Thursday. Placed started like a pimple and then got bigger. He was admitted to [facility] on April 02 due to COVID and COPD exacerbation and was discharged on April 07. He was then
readmitted to [facility] due to shortness of breath and completed steroids recently.
CT chest-right chest wall findings consistent with cellulitis. No abscess. No acute pulmonary process. 4 mm nodule in the left major fissure. Aneurysmal dilatation of ascending aorta 4.4 cm. Right adrenal adenoma and probable subcentimeter left
adrenal adenoma. Splenomegaly.
EKG sinus bradycardia
Right chest wall-status post I&D site noted no drainage
Chest wall redness present
# Chest wall cellulitis and MRSA abscess
Status post I&D by Dr. Paredes on 04/13/2025
Continue Vancomycin
Wound cultures With MRSA
# Recent COVID-19 infection-tested positive on 04/02/2025 treated with Remdesivir per patient
# COPD with recent exacerbation completed steroids
Continue Breztri , Airspura or equivalent
# Paroxysmal atrial fibrillation-continue Pradaxa, amiodarone, Cardizem
# Iron deficiency anemia
# Diabetes-hemoglobin A1c- 7.8
Hold Mounjaro and continue metformin
Accu-Cheks and sliding scale coverage
# Hyperlipidemia-continue statin
# 4 mm pulmonary nodule-outpatient follow-up
# Aneurysmal dilatation of ascending aorta 4.4 cm-outpatient follow-up
# Adrenal adenoma-outpatient follow-up
# Bipolar disease-on fluoxetine, Lybalvi. As outpatient. Currently on fluoxetine and Zyprexa not on samidorphan which is a part of labile be secondary to interaction with oxycodone
# Alcohol abuse-sober for over 2 months now. Goes to meetings and he is in a group house
# Obesity with a BMI of 48.5-on Mounjaro 7.5 mg every week as outpatient
History of gastric bypass 2004
With history of gastric bypass in B12 being 345 will replace
# DVT prophylaxis-Pradaxa
# CODE STATUS-full code
Discussed with case management
Discussed with nursing
Get records from [facility]
Part of this note was created using voice recognition system. Occasional wrong word or��sound alike� substitutions may have inadvertently occurred due to the inherent limitations of voice recognition software. If noted kindly bring it to my
attention for correction.
Anticipated Discharge: Within 24 hours
Subjective/Interval History
-
Date of Service: April 15, 2025
Objective Data
-
Vital Signs:
Vital Signs
Temp Pulse Resp BP Pulse Ox
97.7 F 62 20 108/84 97
04/15/25 07:00 04/15/25 10:32 04/15/25 07:00 04/15/25 07:00 04/15/25 07:00
I&O
04/14/25 04/15/25 04/16/25
06:59 06:59 06:59
Intake Total 3930 / 3930 4375 / 4375
Output Total 2200 / 2200
Balance 3930 / 3930 2175 / 2175
[2025-04-15 12:23] LABS: Glucose - Point of Care 130 mg/dl (70-99)
[2025-04-15 15:00] VITALS: BP 136/62
[2025-04-15 17:10] LABS: Glucose - Point of Care 133 mg/dl (70-99)
[2025-04-15] MEDS: COLACE 100 MG PO (18:15)
[2025-04-15 20:00] VITALS: BP 125/50
[2025-04-15] MEDS: CARDIZEM CD PO (20:06)
[2025-04-15 21:11] LABS: Glucose - Point of Care 171 mg/dl (70-99)
[2025-04-15 23:36] VITALS: BP 120/54
[2025-04-16] MEDS: PERCOCET 5/325 2 TABLET PO ×4 (03:33→19:32)
[2025-04-16] MEDS: VANCOCIN 535 MG IV ×2 (06:13→16:22)
[2025-04-16] MEDS: FLUSH (NSS) 1 FLUSH IV (06:15)
[2025-04-16] MEDS: SPIRIVA RESPIMAT 2.5 MCG 2 PUFF INH (07:35)
[2025-04-16] MEDS: SYMBICORT 160/4.5 MCG INHALER 2 PUFF INH ×2 (07:35→20:24)
[2025-04-16 07:40] VITALS: BP 115/51
[2025-04-16 07:43] LABS: Glucose - Point of Care 127 mg/dl (70-99)
[2025-04-16] MEDS: NOVOLOG FLEXPEN-LOW RESISTANCE SC ×3 (07:49→16:44)
[2025-04-16] MEDS: COLACE 100 MG PO (08:13)
[2025-04-16] MEDS: PROTONIX 40 MG PO (08:13)
[2025-04-16] MEDS: PRADAXA 150 MG PO ×2 (08:13→19:33)
[2025-04-16] MEDS: GLUCOPHAGE 500 MG PO ×2 (08:13→16:23)
[2025-04-16] MEDS: LASIX 40 MG PO (08:14)
[2025-04-16] MEDS: ZYPREXA 20 MG PO (08:15)
[2025-04-16] MEDS: CRESTOR 10 MG PO (08:15)
[2025-04-16] MEDS: PACERONE PO (08:16)
[2025-04-16] MEDS: CYANOCOBALAMIN 1000 MCG IM (08:16)
[2025-04-16] MEDS: CARDIZEM CD PO (08:16)
[2025-04-16] MEDS: PROZAC 20 MG PO (08:16)
[2025-04-16] MEDS: ALDACTONE 25 MG PO (08:23)
--- NOTE | 2025-04-16 09:02 | PHA.VAN.FU ---
Vancomycin Assessment / Plan
- Assessment
Renal Function: Stable
WBC's are: WNL
In the past 24 hrs, patient has been: Afebrile
- Assessment - Therapeutic Drug Monitoring
Extrapolated Cmax (mcg/mL): 20.9
Peak level was drawn: More than 3 hours after previous dose
Extrapolated Cmin (mcg/mL): 12.6
Trough Drawn: Appropriately
Calculated AUC (mcg*h/mL): 394
Calculated ke: 0.0508
Calculated half life (H): 13.7
Calculated Vd (L): 174.78
Calculated Vanc CL (ml/min): 147.87
- Dosing Plan
Continue: 1750mg Q12H
- Monitoring Plan
No level(s) ordered at this time: Consider re-draw if patient stays
- Follow Up
Pharmacy will continue to follow.
Vancomycin Follow UP
- -
Patient Age: 59
Patient Sex: Male
Vancomycin Day #: 5
Indication: Skin And Soft Tissue
Requesting Provider: Rosalva Harper
Pertinent Antimicrobial Allergies:
daptomycin - rhabdomyolysis
Height / Weight:
Height 5 ft 10 in
Actual Weight 153.36 kg
Pertinent Past Medical History: BMI ~51, DM 2
- Vital Signs / Lab Results
Temp Pulse Resp BP Pulse Ox
97.4 F 49 18 115/51 98
04/16/25 07:40 04/16/25 08:16 04/16/25 07:40 04/16/25 07:40 04/16/25 07:40
Lab Results - Hematology
04/14/25
07:21
WBC 10.6
Lab Results - Chemistry
04/14/25
07:21
BUN 14
Creatinine 0.9
Estimated Creat Clear > 125
Microbiology Results
04/13/25 15:43 Wound Culture - Preliminary
Chest - Right Staph aureus MRSA
Gram Stain - Preliminary
04/13/25 15:43 Anaerobic Culture - Preliminary
Chest - Right Culture pending. Anaerobic cultures are examined after 3
days incubation. Additional information to follow.
Therapeutic Drug Monitoring
Vancomycin Peak 17.4 ug/ml (18-26) L 04/15/25 22:35
Vancomycin Trough 12.3 ug/ml (5-20) 04/16/25 05:25
[2025-04-16 09:04] LABS: Blood Urea Nitrogen 15 mg/dl (9-20); Calcium 9.2 mg/dl (8.4-10.2); Carbon Dioxide 26 mmol/L (22-30); Chloride 103 mmol/L (98-107); Estimated Creatinine Clearance 117 ml/min; Glucose 139 mg/dl (70-99); Potassium 4.3 mmol/L (3.5-5.1); Sodium 136 mmol/L (135-145); eGFR > 60.00
--- NOTE | 2025-04-16 10:39 | W.PN.HOSP.TC ---
Today's Communication/Plan
-
Meds adjusted according to [facility]
Will get records from [facility] also as pt is not very forthcoming with his history or meds
Patient may take a shower
Continue IV vancomycin
Assessment / Plan
Assessment / Plan
59-year-old female with right chest wall abscess noted on Thursday. Placed started like a pimple and then got bigger. He was admitted to [facility] on April 02 due to COVID and COPD exacerbation and was discharged on April 07. He was then
readmitted to [facility] due to shortness of breath and completed steroids recently.
CT chest-right chest wall findings consistent with cellulitis. No abscess. No acute pulmonary process. 4 mm nodule in the left major fissure. Aneurysmal dilatation of ascending aorta 4.4 cm. Right adrenal adenoma and probable subcentimeter left
adrenal adenoma. Splenomegaly.
EKG sinus bradycardia
Echo 03/21/2025-normal LV size, mild concentric LVH, EF 50 to 55%, mildly dilated RV and normal systolic function. Severely dilated atrium, mildly dilated aortic root
Right chest wall-status post I&D site noted no drainage
Chest wall redness present, but better
# Chest wall cellulitis and MRSA abscess
Status post I&D by Dr. Paredes on 04/13/2025
Continue Vancomycin
Wound cultures With MRSA
# Recent COVID-19 infection-tested positive on 04/02/2025 treated with Remdesivir for 3 days
# COPD with recent exacerbation completed steroids
Continue Breztri , Airspura or equivalent
# Paroxysmal atrial fibrillation-continue Pradaxa, amiodarone, Does not seem to be on Cardizem per list Stopped
# Iron deficiency anemia-PO iron
# Diabetes-hemoglobin A1c- 7.8
Hold Mounjaro and continue metformin
Accu-Cheks and sliding scale coverage
# Hyperlipidemia-continue statin
# 4 mm pulmonary nodule-outpatient follow-up
# Aneurysmal dilatation of ascending aorta 4.4 cm-outpatient follow-up
# Adrenal adenoma-outpatient follow-up
# Bipolar disease-on fluoxetine, Lybalvi. As outpatient. Currently on fluoxetine and Zyprexa not on samidorphan which is a part of labile be secondary to interaction with oxycodone
# History of PE 2014
# [facility] apnea [facility] on [facility]- pt says
# Alcohol abuse-sober for over 2 months now. Goes to meetings and he is in a Sober house now.
# Obesity with a BMI of 48.5-on Mounjaro 7.5 mg every week as outpatient
History of gastric bypass 2004
With history of gastric bypass in B12 being 345 will replace
# Ex-smoker
# DVT prophylaxis-Pradaxa
# CODE STATUS-full code
Discussed with case management
Discussed with nursing
Came to my attention today that records that I was waiting for were scanned in .
Records from [facility] reviewed patient was admitted on 04/02/2025 for COPD exacerbation and treated with IV steroids. He also received 3-day course of remdesivir for COVID-19 they used BiPAP
Medication list
Airspura 1 puff twice daily
Albuterol inhaler 2 puffs every 6 hours as needed
Albuterol nebulizer 2.5 mg per 3 mL every 6 hours as needed
Amiodarone 200 mg daily
Breztri 160/9/4 0.82 puffs twice daily
Pradaxa 150 mg twice daily
Iron sulfate 325 mg daily
Fluoxetine 20 g daily
Lasix 40 mg daily as needed for leg swelling
Melatonin 3 mg daily
Metformin 500 mg twice daily
Mounjaro 7.5 mg weekly
Olanzapine 5 mg nighttime
Protonix 40 mg daily
Rosuvastatin 10 mg daily at night
Aldactone 25 g daily
Spoke to patient he states that he is not on Lybalvi now. He states that his BiPAP is settings.
OP med list adjusted.
Time spent more than 50 minutes today
Part of this note was created using voice recognition system. Occasional wrong word or��sound alike� substitutions may have inadvertently occurred due to the inherent limitations of voice recognition software. If noted kindly bring it to my
attention for correction.
Anticipated Discharge: Within 24 hours
Subjective/Interval History
-
Date of Service: April 16, 2025
Objective Data
-
Labs:
Laboratory Results
04/16/25
05:25
Sodium 136
Potassium 4.3
Chloride 103
Carbon Dioxide 26
BUN 15
Creatinine 1.0
Glucose 139 H
Calcium 9.2
Vital Signs:
Vital Signs
Temp Pulse Resp BP Pulse Ox
97.4 F 49 18 115/51 98
04/16/25 07:40 04/16/25 08:16 04/16/25 07:40 04/16/25 07:40 04/16/25 07:40
I&O
04/15/25 04/16/25 04/17/25
06:59 06:59 06:59
Intake Total 4375 / 4375 3615 / 3615
Output Total 2200 / 2200 1700 / 1700
Balance 2175 / 2175 1914 / 191
[2025-04-16 11:55] LABS: Glucose - Point of Care 127 mg/dl (70-99)
[2025-04-16] MEDS: SENOKOT 17.2 MG PO ×2 (12:48→19:33)
[2025-04-16] MEDS: MIRALAX 17 GRAMS PO (12:48)
[2025-04-16 15:40] VITALS: BP 135/60
[2025-04-16] MEDS: FLUSH (NSS) 2 FLUSH IV (16:23)
[2025-04-16 16:35] LABS: Glucose - Point of Care 126 mg/dl (70-99)
[2025-04-16 21:26] LABS: Glucose - Point of Care 179 mg/dl (70-99)
[2025-04-16 23:19] VITALS: BP 115/63
[2025-04-17] MEDS: PERCOCET 5/325 2 TABLET PO ×6 (01:53→22:24)
[2025-04-17] MEDS: ZYPREXA 5 MG PO ×2 (03:19→22:25)
[2025-04-17] MEDS: VANCOCIN 535 MG IV ×2 (06:04→17:07)
[2025-04-17] MEDS: SPIRIVA RESPIMAT 2.5 MCG 2 PUFF INH (07:27)
[2025-04-17] MEDS: SYMBICORT 160/4.5 MCG INHALER 2 PUFF INH ×2 (07:27→19:33)
[2025-04-17 07:46] LABS: Glucose - Point of Care 113 mg/dl (70-99)
[2025-04-17 07:47] VITALS: BP 103/54
[2025-04-17] MEDS: NOVOLOG FLEXPEN-LOW RESISTANCE SC ×3 (07:48→16:36)
[2025-04-17] MEDS: PACERONE PO (07:52)
[2025-04-17] MEDS: MIRALAX 17 GRAMS PO (07:57)
[2025-04-17] MEDS: PROTONIX 40 MG PO (07:57)
[2025-04-17] MEDS: VITAMIN B-12 1000 MCG PO (07:57)
[2025-04-17] MEDS: ALDACTONE 25 MG PO (07:57)
[2025-04-17 07:58] LABS: Blood Urea Nitrogen 14 mg/dl (9-20); Calcium 9.2 mg/dl (8.4-10.2); Carbon Dioxide 29 mmol/L (22-30); Chloride 103 mmol/L (98-107); Estimated Creatinine Clearance 117 ml/min; Glucose 117 mg/dl (70-99); Sodium 138 mmol/L (135-145); eGFR > 60.00
[2025-04-17] MEDS: PROZAC 20 MG PO (07:58)
[2025-04-17] MEDS: GLUCOPHAGE 500 MG PO ×2 (07:58→16:01)
[2025-04-17] MEDS: COLACE 100 MG PO (07:58)
[2025-04-17] MEDS: SENOKOT 17.2 MG PO ×2 (07:58→21:16)
[2025-04-17] MEDS: FEOSOL 325 MG PO (07:58)
[2025-04-17] MEDS: PRADAXA 150 MG PO ×2 (07:58→21:16)
[2025-04-17] MEDS: LASIX 40 MG PO (07:59)
[2025-04-17 08:10] LABS: Potassium 4.5 mmol/L (3.5-5.1)
--- NOTE | 2025-04-17 09:25 | CM ---
Reviewed the chart notes. Patient seen ambulating in hallway ad carrillo. CM continues to be available to patient/family and is monitoring medical plan for needs at discharge.
Plan: Discharge to home when medically stable with VN services. Referral sent and accepted in [facility].
[2025-04-17] MEDS: DILAUDID 0.5 MG IV (10:32)
--- NOTE | 2025-04-17 10:55 | W.PN.HOSP.TC ---
Addendum entered and electronically signed by Josefa Huertas MD 04/18/25 12:08:
Cellulitis/abscess not associated with diabetes
Original Note:
Today's Communication/Plan
-
Continue vancomycin
Case management to make arrangements for wound care he might need daily wound care as outpatient
Assessment / Plan
Assessment / Plan
59-year-old female with right chest wall abscess noted on Thursday. Placed started like a pimple and then got bigger. He was admitted to [facility] on April 02 due to COVID and COPD exacerbation and was discharged on April 07. He was then
readmitted to [facility] due to shortness of breath and completed steroids recently.
CT chest-right chest wall findings consistent with cellulitis. No abscess. No acute pulmonary process. 4 mm nodule in the left major fissure. Aneurysmal dilatation of ascending aorta 4.4 cm. Right adrenal adenoma and probable subcentimeter left
adrenal adenoma. Splenomegaly.
EKG sinus bradycardia
Echo 03/21/2025-normal LV size, mild concentric LVH, EF 50 to 55%, mildly dilated RV and normal systolic function. Severely dilated atrium, mildly dilated aortic root
Right chest wall-status post I&D site noted no drainage
Chest wall redness better
I&D being performed by Dr. Alcala, slough removed.
# Chest wall cellulitis and MRSA abscess
Status post I&D by Dr. Paredes on 04/13/2025
More I and D and [place] drain by on 04/17/25
Redness around the wound better
Continue Vancomycin
Wound cultures With MRSA
# Recent COVID-19 infection-tested positive on 04/02/2025 treated with Remdesivir for 3 days
# COPD with recent exacerbation completed steroids
Continue Breztri , Airspura or equivalent
# Paroxysmal atrial fibrillation-continue Pradaxa, amiodarone, Does not seem to be on Cardizem per list (Stopped)
# Iron deficiency anemia-PO iron
# Diabetes-hemoglobin A1c- 7.8
Hold Mounjaro and continue metformin
Accu-Cheks and sliding scale coverage
# Hyperlipidemia-continue statin
# 4 mm pulmonary nodule-outpatient follow-up
# Aneurysmal dilatation of ascending aorta 4.4 cm-outpatient follow-up
# Adrenal adenoma-outpatient follow-up
# Bipolar disease-on fluoxetine, Lybalvi. As outpatient. Currently on fluoxetine and Zyprexa not on samidorphan which is a part of labile be secondary to interaction with oxycodone
# History of PE 2014
# Sleep apnea [facility] on [facility]AP- pt says
# Alcohol abuse-sober for over 2 months now. Goes to a partial program and he is in a Sober house now.
# Obesity with a BMI of 48.5-on Mounjaro 7.5 mg every week as outpatient
History of gastric bypass 2004
With history of gastric bypass in B12 being 345 will replace
# Ex-smoker
# DVT prophylaxis-Pradaxa
# CODE STATUS-full code
Discussed with case management
Discussed with nursing
Staff made aware to request records from [facility]
Records from [facility] patient was admitted on 04/02/2025 for COPD exacerbation and treated with IV steroids. He also received 3-day course of Remdesivir for COVID-19 they used BiPAP
Medication list per [facility] discharge
Airspura 1 puff twice daily
Albuterol inhaler 2 puffs every 6 hours as needed
Albuterol nebulizer 2.5 mg per 3 mL every 6 hours as needed
Amiodarone 200 mg daily
Breztri 160/9/4 0.82 puffs twice daily
Pradaxa 150 mg twice daily
Iron sulfate 325 mg daily
Fluoxetine 20 g daily
Lasix 40 mg daily as needed for leg swelling
Melatonin 3 mg daily
Metformin 500 mg twice daily
Mounjaro 7.5 mg weekly
Olanzapine 5 mg nighttime
Protonix 40 mg daily
Rosuvastatin 10 mg daily at night
Aldactone 25 g daily
Spoke to patient he states that he is not on Lybalvi now.
Wait for records from [facility] -discharge summary ( after [facility] admission) to adjust med list)
D/W Surgical team at bed side.
Part of this note was created using voice recognition system. Occasional wrong word or��sound alike� substitutions may have inadvertently occurred due to the inherent limitations of voice recognition software. If noted kindly bring it to my
attention for correction.
Anticipated Discharge: 24 - 48 hours
Subjective/Interval History
-
Date of Service: April 17, 2025
Objective Data
-
Labs:
Laboratory Results
04/17/25
06:14
Sodium 138
Potassium 4.5
Chloride 103
Carbon Dioxide 29
BUN 14
Creatinine 1.0
Glucose 117 H
Calcium 9.2
Vital Signs:
Vital Signs
Temp Pulse Resp BP Pulse Ox
97.5 F 49 22 103/54 96
04/17/25 10:38 04/17/25 07:59 04/17/25 07:47 04/17/25 07:59 04/17/25 10:29
I&O
04/16/25 04/17/25 04/18/25
06:59 06:59 06:59
Intake Total 5 / 5 3020 / 3020
Output Total 1700 / 1700
Balance 1914 / 1914 3020 / 3020
--- NOTE | 2025-04-17 11:23 | W.PN.GS2 ---
Today's Communication / Plan
-
Karo drain placed
c/w abx
Assessment / Plan
-
59 yo diabetic male on Pradaxa for AF who presented with boil to right upper anterior lateral chest with surrounding erythema/induration
PPD #4 bedside I&D
AFVSS
Erythema/cellulitis improved but induration still present
Counter incision made today and karo drain placed for better wound drainage (see separate procedure note)
Wound cx; +MRSA
Plan:
ABX as per primary team
Continue local wound care with dressing changes daily and prn
Ok to shower
Outpatient surgical follow up for removal of karo in 2-3 weeks
Medical management and final dispo as per primary team
Subjective Data
-
Date of Service: April 17, 2025
Pt seen and examined at bedside with Dr. Alcala. Dominga n/v. Ambulating. Pain persists to right chest. No fever/chills.
Objective Data
-
Intake and Output
04/16/25 04/17/25 04/18/25
06:59 06:59 06:59
Intake Total 3615 / 3615 3020 / 3020
Output Total 1700 / 1700
Balance 1915 / 1915 3020 / 3020
Intake:
Oral fluids 2580 / 2580 2520 / 2520
IV piggybacks 1035 / 1035 500 / 500
Output:
Urine, Voided 1700 / 1700
Other:
Number of approximated MODERATE 2 5
amounts of urine
Number of approximated LARGE 4
amounts of urine
Number of unmeasured liquid
stools
Rectum 1
Vital Signs
Temp Pulse Resp BP Pulse Ox
97.5 F 49 22 103/54 96
04/17/25 10:38 04/17/25 07:59 04/17/25 07:47 04/17/25 07:59 04/17/25 10:29
Lab Results
04/14/25 07:21
04/17/25 06:14
Calcium 9.2 mg/dl (8.4-10.2) 04/17/25 06:14
Total Bilirubin 1.0 mg/dl (0.2-1.3) 04/12/25 10:09
AST 15 U/L (17-59) L 04/12/25 10:09
ALT 10 U/L (0-50) 04/12/25 10:09
Alkaline Phosphatase 84 U/L (38-126) 04/12/25 10:09
Total Protein 6.6 g/dl (6.3-8.2) 04/12/25 10:09
Albumin 4.3 g/dl (3.5-5.0) 04/12/25 10:09
Physical Exam
-
NAD
Right chest wound with minimal seropurulent drainage, induration still present with improving surrounding erythema
[2025-04-17] MEDS: XYLOCAINE 2% WITH EPINEPHRINE 20 ML INFIL (11:27)
[2025-04-17 11:39] LABS: Glucose - Point of Care 123 mg/dl (70-99)
--- NOTE | 2025-04-17 12:03 | PHA.VAN.FU ---
Vancomycin Assessment / Plan
- Assessment
Renal Function: Stable
WBC's are: WNL
In the past 24 hrs, patient has been: Afebrile
- Dosing Plan
Continue: Vanc 1750mg Q12H
Dosing Comments: peak was not drawn appr - unable to assess true half-life
- Monitoring Plan
No level(s) ordered at this time: consider repeat levels in next few days to assess pt specific PK
- Follow Up
Pharmacy will continue to follow.
Vancomycin Follow UP
- -
Patient Age: 59
Patient Sex: Male
Vancomycin Day #: 6
Indication: Skin And Soft Tissue
Requesting Provider: Rosalva Harper
Pertinent Antimicrobial Allergies:
daptomycin - rhabdomyolysis
Height / Weight:
Height 5 ft 10 in
Actual Weight 153.36 kg
Pertinent Past Medical History: BMI ~51, DM 2
- Vital Signs / Lab Results
Temp Pulse Resp BP Pulse Ox
97.5 F 49 22 103/54 96
04/17/25 10:38 04/17/25 07:59 04/17/25 07:47 04/17/25 07:59 04/17/25 10:29
Lab Results - Chemistry
04/16/25 04/17/25
05:25 06:14
BUN 15 14
Creatinine 1.0 1.0
Estimated Creat Clear 117 117
Microbiology Results
04/13/25 15:43 Anaerobic Culture - Preliminary
Chest - Right NO ANAEROBES ISOLATED
04/13/25 15:43 Wound Culture - Preliminary
Chest - Right Staph aureus MRSA
Gram Stain - Preliminary
Therapeutic Drug Monitoring
Vancomycin Peak 17.4 ug/ml (18-26) L 04/15/25 22:35
Vancomycin Trough 12.3 ug/ml (5-20) 04/16/25 05:25
--- NOTE | 2025-04-17 12:15 | PN.CDI ---
CDI
- -
CDI:
Physician Documentation Request
Admit Date: 04/12/25 13:06
Dear Doctor Aleksandar,
Patient admitted with chest wall cellulitis/ abscess.
04/17 PN, 'Chest wall cellulitis and MRSA abscess....Diabetes-hemoglobin A1c- 7.8... continue metformin.'
Please clarify the suspected relationship between these conditions:
Yes, cellulitis/ abscess are associated with/related to diabetes.
No, cellulitis/ abscess are not associated with/related to diabetes but it is due to ___. (Please specify)
Unable to determine
Use of terms such as suspected, likely, concern for, or probable (associated with a specific diagnosis that is being evaluated, monitored, or treated as if it exists) are acceptable and can be coded in the inpatient setting, when documented at the
time of discharge.
Thank you,
Alexandra BOYLE,RN,CCDS
CDI Specialist
Available via [place] text
Please use your independent medical judgment in providing your response.
[2025-04-17] MEDS: TORADOL 15 MG IV (12:25)
[2025-04-17] MEDS: ROXICODONE 10 MG PO (13:08)
[2025-04-17 15:17] VITALS: BP 124/58
[2025-04-17 16:35] LABS: Glucose - Point of Care 124 mg/dl (70-99)
--- NOTE | 2025-04-17 16:36 | W.PN.SURGUPD ---
Surgical Update
Surgical Update
Bedside incision and Drainage
A team time-out was performed confirming the location/laterality of the procedure, consent and allergies reviewed.
Location: Right chest wall
Dimensions: 4 cm
Local: 1% Lidocaine
Choirmaster: Graciela
The skin was cleaned with alcohol and anesthetized with lidocaine with epinephrine. A linear counter incision was made over the indurated area above his previous incision. A small but secondary abscess cavity was identified. The wound was irrigated
with sterile saline. Hemostasis was obtained. There was minimal blood loss. A looped [place] drain was placed and secured with silk ties. No specimens were sent to Pathology/Culture. The patient tolerated the procedure well, discharge instructions
reviewed and all questions were answered.
[2025-04-17] MEDS: CRESTOR 10 MG PO (17:07)
--- NOTE | 2025-04-17 18:13 | PTCARENOTE ---
Patient s/p bedside I+D of R chest wound this AM with general surgery, karo drain intact, mild serosanguineous drainage, patient showered per MD order, dry dressing and paper tape reapplied over wound area per general surgery order. Patient
ambulatory in room and simpson, states R chest pain 6-8/10 throughout shift, sore and aching but burning feeling resolved after I+D, medicated throughout shift with PRN Percocet- see NOV.
[2025-04-17 21:44] LABS: Glucose - Point of Care 167 mg/dl (70-99)
[2025-04-17 22:55] VITALS: PULSE 2; PULSE 51
[2025-04-17 23:26] VITALS: BP 128/51
[2025-04-18] MEDS: PERCOCET 5/325 2 TABLET PO ×5 (02:26→19:57)
[2025-04-18 04:00] VITALS: BP 125/69
[2025-04-18 06:01] VITALS: BMI 51.2
[2025-04-18] MEDS: VANCOCIN 535 MG IV ×2 (06:12→17:40)
[2025-04-18] MEDS: SPIRIVA RESPIMAT 2.5 MCG 2 PUFF INH (07:32)
[2025-04-18] MEDS: SYMBICORT 160/4.5 MCG INHALER 2 PUFF INH ×2 (07:33→20:13)
[2025-04-18 07:44] LABS: Glucose - Point of Care 116 mg/dl (70-99)
[2025-04-18] MEDS: NOVOLOG FLEXPEN-LOW RESISTANCE SC ×3 (07:44→17:34)
[2025-04-18 07:58] LABS: Hematocrit 32.6 % (39.0-52.0); Hemoglobin 10.6 g/dL (13.0-18.0); Mean Corp Hgb Conc. 32.5 g/dL (33.0-37.0); Mean Corpuscular Volume 76.7 fL (80.0-94.0); Platelet Count 164 10^3/uL (130-400); Red Cell Dist. Width 19.5 % (11.5-14.5)
[2025-04-18 08:00] VITALS: BP 127/69
[2025-04-18] MEDS: PRADAXA 150 MG PO ×2 (08:02→19:56)
[2025-04-18] MEDS: ALDACTONE 25 MG PO (08:03)
[2025-04-18] MEDS: VITAMIN B-12 1000 MCG PO (08:05)
[2025-04-18] MEDS: PROTONIX 40 MG PO (08:05)
[2025-04-18] MEDS: PROZAC 20 MG PO (08:05)
[2025-04-18] MEDS: LASIX 40 MG PO (08:05)
[2025-04-18] MEDS: GLUCOPHAGE 500 MG PO ×2 (08:06→17:12)
[2025-04-18] MEDS: SENOKOT 17.2 MG PO ×2 (08:06→19:56)
[2025-04-18] MEDS: MIRALAX 17 GRAMS PO (08:06)
[2025-04-18] MEDS: PACERONE PO (08:06)
[2025-04-18] MEDS: COLACE 100 MG PO (08:06)
--- NOTE | 2025-04-18 08:11 | W.PN.HOSP.TC ---
Today's Communication/Plan
-
IV Vancomycin
expect DC on Bactrim tomorrow
Assessment / Plan
Assessment / Plan
59-year-old female with right chest wall abscess noted on Thursday. Placed started like a pimple and then got bigger. He was admitted to [facility] on April 02 due to COVID and COPD exacerbation and was discharged on April 07. He was then
readmitted to [facility] due to shortness of breath and completed steroids recently.
CT chest-right chest wall findings consistent with cellulitis. No abscess. No acute pulmonary process. 4 mm nodule in the left major fissure. Aneurysmal dilatation of ascending aorta 4.4 cm. Right adrenal adenoma and probable subcentimeter left
adrenal adenoma. Splenomegaly.
EKG sinus bradycardia
Echo 03/21/2025-normal LV size, mild concentric LVH, EF 50 to 55%, mildly dilated RV and normal systolic function. Severely dilated atrium, mildly dilated aortic root
Right chest wall-status post I&D site noted no drainage
Chest wall redness better
I&D being performed by Dr. Alcala, slough removed.
# Chest wall cellulitis and MRSA abscess
Status post I&D by Dr. Paredes on 04/13/2025
Repeat I&D and Karo drain by on 04/17/25
-IV VAncomycin
-DC on Bactrim likely tomorrow to complete 2 week antibiotic course
-wound care: Cover with dry gauze pad and secure with paper tape. Change daily and prn. Karo to remain in place
# Recent COVID-19 infection-tested positive on 04/02/2025 treated with Remdesivir for 3 days
# COPD with recent exacerbation completed steroids
Continue Breztri , Airspura or equivalent
# Paroxysmal atrial fibrillation-continue Pradaxa
-amiodarone held past several days for bradycardia
Essential HTN
-hold spironolactone while receiving Bactrim (given risk hyper K)
# Iron deficiency anemia-PO iron
# Diabetes-hemoglobin A1c- 7.8
Hold Mounjaro and continue metformin
Accu-Cheks and sliding scale coverage
# Hyperlipidemia-continue statin
# 4 mm pulmonary nodule-outpatient follow-up
# Aneurysmal dilatation of ascending aorta 4.4 cm-outpatient follow-up
# Adrenal adenoma-outpatient follow-up
# Bipolar disease-on fluoxetine, Lybalvi. As outpatient. Currently on fluoxetine and Zyprexa not on samidorphan which is a part of labile be secondary to interaction with oxycodone
# History of PE 2014
# [facility] ap[facility] on [facility]AP- pt says
# Alcohol abuse-sober for over 2 months now. Goes to a partial program and he is in a Sober house now.
# Obesity with a BMI of 48.5-on Mounjaro 7.5 mg every week as outpatient
History of gastric bypass 2004
With history of gastric bypass in B12 being 345 will replace
# Ex-smoker
# DVT prophylaxis-Pradaxa
# CODE STATUS-full code
Discussed with case management
Discussed with nursing
Staff made aware to request records from [facility]
Records from [facility] patient was admitted on 04/02/2025 for COPD exacerbation and treated with IV steroids. He also received 3-day course of Remdesivir for COVID-19 they used BiPAP
Medication list per [facility] discharge
Airspura 1 puff twice daily
Albuterol inhaler 2 puffs every 6 hours as needed
Albuterol nebulizer 2.5 mg per 3 mL every 6 hours as needed
Amiodarone 200 mg daily
Breztri 160/9/4 0.82 puffs twice daily
Pradaxa 150 mg twice daily
Iron sulfate 325 mg daily
Fluoxetine 20 g daily
Lasix 40 mg daily as needed for leg swelling
Melatonin 3 mg daily
Metformin 500 mg twice daily
Mounjaro 7.5 mg weekly
Olanzapine 5 mg nighttime
Protonix 40 mg daily
Rosuvastatin 10 mg daily at night
Aldactone 25 g daily
Spoke to patient he states that he is not on Lybalvi now.
Wait for records from [facility] -discharge summary ( after [facility] admission) to adjust med list)
D/W Surgical team at bed side.
Part of this note was created using voice recognition system. Occasional wrong word or��sound alike� substitutions may have inadvertently occurred due to the inherent limitations of voice recognition software. If noted kindly bring it to my
attention for correction.
Anticipated Discharge: 24 - 48 hours
Subjective/Interval History
-
Date of Service: April 18, 2025
feeling better but not ready for discharge
area is packed with drain in place
Objective Data
-
Labs:
Laboratory Results
04/18/25
07:22
WBC 4.0 L
Hgb 10.6 L
Hct 32.6 L
Plt Count 164
Sodium Pending
Potassium Pending
Chloride Pending
Carbon Dioxide Pending
BUN Pending
Creatinine Pending
Glucose Pending
Calcium Pending
Vital Signs:
Vital Signs
Temp Pulse Resp BP Pulse Ox
97.5 F 57 16 127/69 97
04/17/25 23:26 04/18/25 08:06 04/18/25 07:38 04/18/25 08:03 04/18/25 07:38
I&O
04/17/25 04/18/25 04/19/25
06:59 06:59 06:59
Intake Total 3020 / 3020 5155 / 5155
Balance 3020 / 3020 5155 / 5155
Review of Systems
-
History Source: Patient
All other systems: Reviewed and negative
Physical Exam
-
General: No Apparent Distress and Obese
HEENT: PERRLA
Respiratory: Other (right chest wound with karo drain in place )
Cardiac: Regular Rhythm and S1/S2
GI: Soft and Nontender
Musculoskeletal: No Edema
Skin: Warm and Dry; Negative Rash
Neuro: AO x 3
Psych: Calm
Data Reviewed
-
Diagnostic Radiology: Report Reviewed by me
Labs: Labs Reviewed by me
[2025-04-18 08:25] VITALS: BP 127/69
[2025-04-18 08:53] LABS: Blood Urea Nitrogen 15 mg/dl (9-20); Calcium 8.7 mg/dl (8.4-10.2); Carbon Dioxide 22 mmol/L (22-30); Chloride 107 mmol/L (98-107); Estimated Creatinine Clearance > 125 ml/min; Glucose 106 mg/dl (70-99); Potassium 4.4 mmol/L (3.5-5.1); Sodium 134 mmol/L (135-145); eGFR > 60.00
--- NOTE | 2025-04-18 11:12 | PTCARENOTE ---
HR for this pt ranging between 47-51 for respiratory this AM, made aware, pacerone held based on parameters, no new orders at this time.
[2025-04-18 11:44] LABS: Glucose - Point of Care 108 mg/dl (70-99)
--- NOTE | 2025-04-18 12:02 | VNURNOTE ---
Home Health Liaison met with patient at bedside to discuss [facility] nurse/therapy, visits, schedule and homebound status. Patient is agreeable and understands that visits at home will be 2-3 x per week to assess and teach medical and wound, drain
management. Patient is aware that [facility] will contact them for start of care in 1-2 days after discharge from .
Patient lives in a sober house: [facility] in [place]. He stated he goes to a day program Mon- Fri, transportation arranged by [facility]. Per patient, [facility] requested wound care be done at day program location
([place]). Explained that [facility] can visit him at his place of residence only. With patient permission, this author contacted Lilliam Shane, at [facility] to ensure they will allow [facility] to do visits at the residence. Left message
requesting call back. Called [phone].
[facility] referral accepted in [facility]. Need to ensure VN permitted in sober [place].
--- NOTE | 2025-04-18 12:28 | CM ---
Patient seen at bedside on . Patient raised concern about living at sober living community and restrictions about persons coming into the community even from . CM updated lia[facility] and await responses. CM will continue to follow for
discharge planning needs.
Plan; home with VN; pending confirmation of wound care status
--- NOTE | 2025-04-18 15:27 | PHA.VAN.FU ---
Addendum entered and electronically signed by Frida Howard Wilian 04/19/25 08:33:
Correction: levels to be drawn after 12th maintenance dose; 6th day of maintenance doses
Original Note:
Vancomycin Assessment / Plan
- Assessment
Renal Function: Stable
In the past 24 hrs, patient has been: Afebrile
- Dosing Plan
Continue: Vanc 1750mg Q12H
- Monitoring Plan
Peak Level: 04/18 22:00
Trough Level: 04/19 05:30
Monitoring Comments: levels to be drawn after 6th maintenance dose
Patient may be discharged tomorrow
However, prior peak was not drawn appropriately and patient on high dose regimen with BMI > 50; will obtain levels to better ensure non-toxic in case course extended
BUN & SCR ordered per protocol
- Follow Up
Pharmacy will continue to follow.
Vancomycin Follow UP
- -
Patient Age: 59
Patient Sex: Male
Vancomycin Day #: 7
Indication: Skin And Soft Tissue
Requesting Provider: Rosalva Harper
Pertinent Antimicrobial Allergies:
daptomycin - rhabdomyolysis
Height / Weight:
Height 5 ft 10 in
Actual Weight 161.734 kg
Pertinent Past Medical History: BMI ~51, DM 2
- Vital Signs / Lab Results
Temp Pulse Resp BP Pulse Ox
98.3 F 57 16 127/69 96
04/18/25 08:00 04/18/25 08:06 04/18/25 08:00 04/18/25 08:03 04/18/25 12:43
Lab Results - Hematology
04/18/25
07:22
WBC 4.0 L
Lab Results - Chemistry
04/16/25 04/17/25 04/18/25
05:25 06:14 07:22
BUN 15 14 15
Creatinine 1.0 1.0 0.9
Estimated Creat Clear 117 117 > 125
Microbiology Results
04/13/25 15:43 Wound Culture - Final
Chest - Right Staph aureus MRSA
Gram Stain - Final
04/13/25 15:43 Anaerobic Culture - Final
Chest - Right NO ANAEROBES ISOLATED
Therapeutic Drug Monitoring
Vancomycin Peak 17.4 ug/ml (18-26) L 04/15/25 22:35
Vancomycin Trough 12.3 ug/ml (5-20) 04/16/25 05:25
[2025-04-18 15:55] VITALS: BP 125/69
--- NOTE | 2025-04-18 16:00 | W.DCSUMMARY ---
Discharge Summary
Discharge Data
Date of Admission: 04/12/25
Date of Discharge: 04/19/25
-
Pending Results: No
Hospital Course
Discharging Physician : Dr. Lotus Barber
Disposition : Home
Primary care physician : Dr. El Murray
Principal Discharge diagnosis : Right chest wall MRSA boil/cellulitis
Hospital Course :
Mr. Patrick Zeng is a 59 yo man with hx NIDDM, atrial fibrillation on Pradaxa, COPD, recent admission at [facility] for COVID-19 and COPD exacerbation presents to the ER with pain and redness on right upper chest. Patient reported it
started as a pimple and then increased in size.
Triage vitals stable. Labs without leukocytosis. Exam on right chest with area of erythema and fluctuance. CT chest with right chest wall cellulitis, no abscess. Patient was admitted to medicine with general surgery consulting. He received IV
Vancomycin. He is s/p I&D on 04/13. Culture grew MRSA. He had repeat I&D 04/17 with [place] drain placement for better wound drainage. Patient will continue wound care at home and follow up as outpatient for [place] removal in 2-3 weeks. He is
discharged on Bactrim for 5 additional days to complete a total one week course post 2nd I&D. He is discharged on 2 tabs DS Bactrim given BMI criteria.
*Patient's spironolactone is held while on Bactrim for hyperkalemia prevention.
Of note, patient's heart rate was in 50's at rest. He is asymptomatic and continued on his home amiodarone dosing. He is told to follow up with his Manufacturing Engineering Technician.
Time spent on discharge was 32 minutes.
Important imaging findings :
CT Chest 04/12/25
IMPRESSION:
1. Right chest wall findings most suggestive of cellulitis as above. No abscess formation is identified.
2. No acute pulmonary process identified.
3. Approximately 4 mm nodule along the left major fissure. Given the size and position along the fissure, highly likely to have a benign etiology such as fissural lymph node.
4. Aneurysmal dilation ascending aorta, 4.4 cm diameter.
5. Right adrenal adenoma and probable subcentimeter left adrenal adenoma as above.
6. Splenomegaly.
Procedure findings :
Discharge Plan
-
Patient Disposition: Home (Routine Discharge)
Discharge Diagnosis/Procedures: right chest well MRSA Cellulitis
Diet: Diabetic, Carb Controlled
Activity: No strenuous activity
Bathing Restrictions: OK to Shower
Wound Care: Cover wound with dry gauze pad and secure with paper tape. Change daily and as needed if soiled. Ok to remove dressing for showering. Drain will be removed at your follow up appointment with your surgeon.
Activity Restrictions/Additional Instructions:
See your primary physician for follow-up on 4 mm nodule in the left lung (likely benign per CT report), aortic aneurysm 4.4 cm in the ascending aorta (may need repeat imaging in 12 months), adrenal adenoma and enlarged spleen.
Referrals:
El Murray MD [Family Provider, Family Practice] - in less than 1 week
Kale Alcala MD [Active, Surgical] - in two to three weeks
Referral Note: follow up with Dr. Paredes or Dr Alcala
Additional Discharge Medication Instructions: HOLD SPIRONOLACTONE UNTIL 04/26/25 (FOR ONE WEEK)
You are prescribed 2 tabs double strength Bactrim to take x 5 more days (through morning of 04/24/25)
Prescriptions:
New
olanzapine 5 mg Tablet
5 mg PO HS Qty: 0 0RF
cyanocobalamin (vitamin B-12) [Vitamin B-12] 1,000 mcg Tablet
1,000 mcg PO DAILY Qty: 30 0RF
sulfamethoxazole-trimethoprim 800-160 mg Tablet
2 tab PO BID Qty: 20 0RF
oxycodone-acetaminophen 5-325 mg Tablet
1 tab PO Q8HPRN PRN (Reason: moderate pain) Qty: 5 0RF
Continued
metformin 500 mg Tablet
500 mg PO BID@0800,1700
amiodarone 200 mg Tablet
200 mg PO DAILY
albuterol sulfate 2.5 mg/0.5 mL Solution For Nebulization
5 mg INHALATION Q6H PRN (Reason: shortness of breath)
dabigatran etexilate [Pradaxa] 75 mg Capsule
150 mg PO BID
Breztri Aerosphere 160-9-4.8 mcg/actuation Hfa Aerosol Inhaler
2 inh INHALATION BID
Mounjaro 7.5 mg/0.5 mL Pen Injector
7.5 mg SC QWEEK
Airsupra 90-80 mcg/actuation Hfa Aerosol Inhaler
2 inh INHALATION Q6HPRN PRN (Reason: shortness of breath)
pantoprazole [Protonix] 40 mg Tablet,Delayed Release (Dr/Ec)
40 mg PO DAILY
ferrous sulfate 325 mg (65 mg iron) Tablet
325 mg PO Q48H
fluoxetine 20 mg Tablet
20 mg PO DAILY
rosuvastatin [Crestor] 10 mg Tablet
10 mg PO DAILY
Changed
furosemide [Lasix] 40 mg Tablet
40 mg PO DAILY PRN (Reason: Fluid Retention/Swelling) Qty: 0 0RF
Held
spironolactone 25 mg Tablet
25 mg PO DAILY
Hold Instructions: Resume on 04/26/25.
Discontinued
diltiazem HCl 240 mg Capsule,Extended Release 24 Hr
240 mg PO BID
Lybalvi 20-10 mg Tablet
1 tab PO DAILY
Discharge Orders:
Discharge Patient (As Directed); Ordered 04/19/25
Ordered By: Lotus Barber
Discharge Date and Time
Print Language: ALBANIAN
--- NOTE | 2025-04-18 16:15 | VNURNOTE ---
Left second message with [facility]. Rec'ed call back from Jenn Renee. She is covering for Lilliam Cruzgore. She is checking about accepting VN for daily wound care to be performed at sober living residence.
Awaiting call back w/answer. BULMARO Dawson aware still pending.
[2025-04-18] MEDS: CRESTOR 10 MG PO (17:13)
[2025-04-18 22:04] LABS: Glucose - Point of Care 116 mg/dl (70-99)
[2025-04-18 22:04] LABS: Glucose - Point of Care 126 mg/dl (70-99)
[2025-04-18] MEDS: ZYPREXA 5 MG PO (22:05)
[2025-04-18 23:00] VITALS: BP 126/49; PULSE 2
[2025-04-19 02:38] VITALS: PULSE 2
[2025-04-19] MEDS: PERCOCET 5/325 2 TABLET PO ×2 (04:03→08:18)
[2025-04-19] MEDS: VANCOCIN 535 MG IV (06:13)
[2025-04-19 06:16] LABS: Blood Urea Nitrogen 12 mg/dl (9-20); Estimated Creatinine Clearance 121 ml/min
[2025-04-19 07:25] VITALS: BP 115/59
[2025-04-19] MEDS: SPIRIVA RESPIMAT 2.5 MCG 2 PUFF INH (07:30)
[2025-04-19] MEDS: SYMBICORT 160/4.5 MCG INHALER 2 PUFF INH (07:30)
[2025-04-19 08:12] LABS: Glucose - Point of Care 117 mg/dl (70-99)
[2025-04-19] MEDS: NOVOLOG FLEXPEN-LOW RESISTANCE SC (08:12)
[2025-04-19] MEDS: COLACE PO (08:17)
[2025-04-19] MEDS: PRADAXA 150 MG PO (08:17)
[2025-04-19] MEDS: FEOSOL 325 MG PO (08:17)
[2025-04-19] MEDS: VITAMIN B-12 1000 MCG PO (08:17)
[2025-04-19] MEDS: PROTONIX 40 MG PO (08:18)
[2025-04-19] MEDS: SENOKOT PO (08:18)
[2025-04-19] MEDS: MIRALAX PO (08:18)
[2025-04-19] MEDS: GLUCOPHAGE 500 MG PO (08:18)
[2025-04-19] MEDS: PROZAC 20 MG PO (08:18)
[2025-04-19] MEDS: LASIX 40 MG PO (08:19)
--- NOTE | 2025-04-19 08:31 | PHA.VAN.FU ---
Vancomycin Assessment / Plan
- Assessment
Renal Function: Stable
In the past 24 hrs, patient has been: Afebrile
Vancomycin discontinued but Vanc 1750mg Q12H provided the following patient-specific PK
- Assessment - Therapeutic Drug Monitoring
Extrapolated Cmax (mcg/mL): 26.6
Peak level was drawn: Appropriately (drawn ~2.8H after end of previous infusion)
Extrapolated Cmin (mcg/mL): 15.5
Trough Drawn: Appropriately
Levels were drawn: At steady state (levels drawn after 12th maintenance dose)
Calculated AUC (mcg*h/mL): 495
Calculated ke: 0.0542
Calculated half life (H): 12.8
Calculated Vd (L): 130.5 (~0.8 L/kg)
Calculated Vanc CL (ml/min): 118
Note: half-life prolonged and greater than current dosing interval
If vancomycin were to be continued, would consider reducing dose to Vanc 1500mg Q12H and following to see if additional accumulation
May eventually require Q24H interval with prolonged courses
- Follow Up
Vancomycin discontinued
Vancomycin Follow UP
- -
Patient Age: 59
Patient Sex: Male
Vancomycin Day #: 8
Indication: Skin And Soft Tissue
Requesting Provider: Rosalva Harper
Pertinent Antimicrobial Allergies:
daptomycin - rhabdomyolysis
Height / Weight:
Height 5 ft 10 in
Actual Weight 161.734 kg
Pertinent Past Medical History: BMI ~51, DM 2
- Vital Signs / Lab Results
Temp Pulse Resp BP Pulse Ox
97.8 F 53 16 115/59 97
04/19/25 07:25 04/19/25 08:19 04/19/25 07:35 04/19/25 08:19 04/19/25 07:35
Lab Results - Hematology
04/18/25
07:22
WBC 4.0 L
Lab Results - Chemistry
04/16/25 04/17/25 04/18/25
05:25 06:14 07:22
BUN 15 14 15
Creatinine 1.0 1.0 0.9
Estimated Creat Clear 117 117 > 125
04/19/25
05:23
BUN 12
Creatinine 1.0
Estimated Creat Clear 121
Microbiology Results
04/13/25 15:43 Wound Culture - Final
Chest - Right Staph aureus MRSA
Gram Stain - Final
04/13/25 15:43 Anaerobic Culture - Final
Chest - Right NO ANAEROBES ISOLATED
Therapeutic Drug Monitoring
Vancomycin Peak 22.8 ug/ml (18-26) 04/18/25 22:30
Vancomycin Trough 15.7 ug/ml (5-20) 04/19/25 05:23
--- NOTE | 2025-04-19 08:33 | VNURNOTE ---
Addendum entered by Alexandra Stockton RN 04/19/25 08:40:
Rec'ed call back from Will, coordinator of [facility]. [phone]. He confirmed that [facility] can come to residence ([place]) to perform wound care. Visits would need to be in afternoon due to day program in the [facility].
[facility] referral accepted and updated.
Original Note:
Third phone call placed to [facility] [phone]. Left message requesting call back.
--- NOTE | 2025-04-19 08:34 | W.PN.HOSP.TC ---
Today's Communication/Plan
-
plan to DC today
Assessment / Plan
Assessment / Plan
59-year-old female with right chest wall abscess noted on Thursday. Placed started like a pimple and then got bigger. He was admitted to [facility] on April 02 due to COVID and COPD exacerbation and was discharged on April 07. He was then
readmitted to [facility] due to shortness of breath and completed steroids recently.
CT chest-right chest wall findings consistent with cellulitis. No abscess. No acute pulmonary process. 4 mm nodule in the left major fissure. Aneurysmal dilatation of ascending aorta 4.4 cm. Right adrenal adenoma and probable subcentimeter left
adrenal adenoma. Splenomegaly.
EKG sinus bradycardia
Echo 03/21/2025-normal LV size, mild concentric LVH, EF 50 to 55%, mildly dilated RV and normal systolic function. Severely dilated atrium, mildly dilated aortic root
# Chest wall cellulitis and MRSA abscess
Status post I&D by Dr. Paredes on 04/13/2025
Repeat I&D and Karo drain by on 04/17/25
-s/p 7 day IV Vancomycin; will continue abx for 1 week post last I&D so 5 additional days on DC. Transition to oral Bactrim. Given weight will order 2 DS tabs BID (discussed with [facility] pharma[facility])
-wound care: Cover with dry gauze pad and secure with paper tape. Change daily and prn. Karo to remain in place
# Recent COVID-19 infection-tested positive on 04/02/2025 treated with Remdesivir for 3 days
# COPD with recent exacerbation completed steroids
Continue Breztri , Airspura or equivalent
# Paroxysmal atrial fibrillation-continue Pradaxa
-amiodarone held past several days for bradycardia - discussing briefly with cardiology
-patient has been asymptomatic with HR in 50's, likely resume home dose and have patient follow up with his Electroneurodiagnostic Technologist
Essential HTN
-hold spironolactone while receiving Bactrim (given risk hyper K)
# Iron deficiency anemia-PO iron
# Diabetes-hemoglobin A1c- 7.8
Hold Mounjaro and continue metformin
Accu-Cheks and sliding scale coverage
# Hyperlipidemia-continue statin
# 4 mm pulmonary nodule-outpatient follow-up
# Aneurysmal dilatation of ascending aorta 4.4 cm-outpatient follow-up
# Adrenal adenoma-outpatient follow-up
# Bipolar disease-on fluoxetine, Lybalvi. As outpatient. Currently on fluoxetine and Zyprexa not on samidorphan which is a part of labile be secondary to interaction with oxycodone
# History of PE 2014
# Sleep apnea per [facility] on BIPAP- pt says
# Alcohol abuse-sober for over 2 months now. Goes to a partial program and he is in a Sober house now.
# Obesity with a BMI of 48.5-on Mounjaro 7.5 mg every week as outpatient
History of gastric bypass 2004
With history of gastric bypass in B12 being 345 will replace
# Ex-smoker
# DVT prophylaxis-Pradaxa
# CODE STATUS-full code
Discussed with case management
Discussed with nursing
Staff made aware to request records from [facility]
Records from [facility] reviewed patient was admitted on 04/02/2025 for COPD exacerbation and treated with IV steroids. He also received 3-day course of Remdesivir for COVID-19 they used BiPAP
Medication list per [facility] discharge
Airspura 1 puff twice daily
Albuterol inhaler 2 puffs every 6 hours as needed
Albuterol nebulizer 2.5 mg per 3 mL every 6 hours as needed
Amiodarone 200 mg daily
Breztri 160/9/4 0.82 puffs twice daily
Pradaxa 150 mg twice daily
Iron sulfate 325 mg daily
Fluoxetine 20 g daily
Lasix 40 mg daily as needed for leg swelling
Melatonin 3 mg daily
Metformin 500 mg twice daily
Mounjaro 7.5 mg weekly
Olanzapine 5 mg nighttime
Protonix 40 mg daily
Rosuvastatin 10 mg daily at night
Aldactone 25 g daily
Spoke to patient he states that he is not on Lybalvi now.
Wait for records from [facility] -discharge summary ( after [facility] admission) to adjust med list)
D/W Surgical team at bed side.
Part of this note was created using voice recognition system. Occasional wrong word or��sound alike� substitutions may have inadvertently occurred due to the inherent limitations of voice recognition software. If noted kindly bring it to my
attention for correction.
Anticipated Discharge: Today
Subjective/Interval History
-
Date of Service: April 19, 2025
feeling well
no fevers overnight
feels ready to go home
Objective Data
-
Labs:
Laboratory Results
04/19/25
05:23
BUN 12
Creatinine 1.0
Vital Signs:
Vital Signs
Temp Pulse Resp BP Pulse Ox
97.8 F 53 16 115/59 97
04/19/25 07:25 04/19/25 08:19 04/19/25 07:35 04/19/25 08:19 04/19/25 07:35
I&O
04/18/25 04/19/25 04/20/25
06:59 06:59 06:59
Intake Total 5155 / 5155 2592 / 2592
Balance 5155 / 5155 2592 / 2592
Review of Systems
-
History Source: Patient
All other systems: Reviewed and negative
Physical Exam
-
General: No Apparent Distress and Obese
HEENT: PERRLA
Respiratory: Other (right chest wound with karo drain in place )
Cardiac: Regular Rhythm and S1/S2
GI: Soft and Nontender
Musculoskeletal: No Edema
Skin: Warm and Dry; Negative Rash
Neuro: AO x 3
Psych: Calm
Data Reviewed
-
Diagnostic Radiology: Report Reviewed by me
Labs: Labs Reviewed by me
--- NOTE | 2025-04-19 09:16 | W.DS.TRANS ---
DC Summary - Radar Engineer
-
Discharge Instructions:
Discharge Diagnosis/Procedures right chest well MRSA Cellulitis
Diet Diabetic, Carb Controlled
Activity No strenuous activity
Bathing Restrictions OK to Shower
Wound Care Cover wound with dry gauze pad and secure with
paper tape. Change daily and as needed if soiled
. Ok to remove dressing for showering. Drain
will be removed at your follow up appointment
with your surgeon.
Instructions:
Stand-Alone Forms:
Changes to Home Medications: Yes
Discharge Medications:
DC Medications w/original date entered in [employer]
albuterol 90 mcg-budesonide 80 mcg/actuation HFA aerosol inhaler (Airsupra) 2 inh inhalation Q6HPRN PRN shortness of breath 04/12/25
albuterol sulfate 2.5 mg/0.5 mL solution for nebulization 5 mg inhalation Q6H PRN shortness of breath 04/12/25
amiodarone 200 mg tablet 200 mg PO DAILY Blood Clot Prevention/Tx 04/12/25
budesonide 160 mcg-glycopyr 9 mcg-formot 4.8 mcg/actuation HFA inhaler (Breztri Aerosphere) 2 inh inhalation BID Lung/Breathing Issues 04/12/25
dabigatran etexilate 75 mg capsule (Pradaxa) 150 mg PO BID Blood Clot Prevention/Tx 04/12/25
ferrous sulfate 325 mg (65 mg iron) tablet 325 mg PO Q48H Supplement 04/12/25
fluoxetine 20 mg tablet 20 mg PO DAILY Fluid Retention/Swelling 04/12/25
metformin 500 mg tablet 500 mg PO BID@0800,1700 Diabetes 04/12/25
pantoprazole 40 mg tablet,delayed release (Protonix) 40 mg PO DAILY Gastrointestinal Issue 04/12/25
rosuvastatin 10 mg tablet (Crestor) 10 mg PO DAILY High Cholesterol 04/12/25
spironolactone 25 mg tablet 25 mg PO DAILY Fluid Retention/Swelling 04/12/25
Held on 04/19/25. Instructions: Resume on 04/26/25.
tirzepatide 7.5 mg/0.5 mL subcutaneous pen injector (Mounjaro) 7.5 mg SC QWEEK 04/12/25
cyanocobalamin (vitamin B-12) 1,000 mcg tablet (Vitamin B-12) 1,000 mcg PO DAILY #30 tabs 04/19/25
furosemide 40 mg tablet (Lasix) 40 mg PO DAILY PRN Fluid Retention/Swelling #0 tabs 04/19/25
olanzapine 5 mg tablet 5 mg PO HS #0 tabs 04/19/25
sulfamethoxazole 800 mg-trimethoprim 160 mg tablet 2 tab PO BID #20 tabs 04/19/25
Home Medication Changes
HOLD SPIRONOLACTONE UNTIL 04/26/25 (FOR ONE WEEK)
You are prescribed 2 tabs double strength Bactrim to take x 5 more days (through morning of 04/24/25)
You are prescribed Vitamin B12 for low levels
Pending Results: No
--- NOTE | 2025-04-19 09:28 | CM ---
Reviewed the chart notes and spoke with the patient at the bedside. Patient's program will arrange for transportation home. CM continues to be available to patient/family and is monitoring medical plan for needs at discharge.
Plan: Discharge to home with [facility] services.
[2025-04-19 12:39] VITALS: BP 134/65
--- NOTE | 2025-04-19 13:34 | PTCARENOTE ---
Patient discharged home with VN, transported by friend. This RN removed patient's IV, vitals taken by tech prior to transport stable. Patient showered and dressed prior to DC. This RN reviewed discharge instructions/medications with patient, patient
verbalized understanding. R chest wall dressing changed prior to DC, patient provided extra gauze and tape before DC. Patient taken down to friend's car at main lobby via staff escort and wheelchair.
== END 2025-04-19 14:20 | disposition home health service (06) | DRG 603 ==
LOC: 2 NORTH 13:06
PROVIDERS: Emergency Medicine; Hospitalist; Surgery; ADMITTING PHYSICIAN Hospitalist; ATTENDING PHYSICIAN Student in an Organized Health Care Education/Training Program; EMERGENCY PHYSICIAN Emergency Medicine; FAMILY PHYSICIAN Family Medicine; OTHER PHYSICIAN Surgery
PROC: 0J960ZZ Drainage of Chest Subcutaneous Tissue and Fascia, Open Approach (ICD-10-PCS; 2025-04-13)
PROC: 0J9600Z Drainage of Chest Subcutaneous Tissue and Fascia with Drainage Device, Open Approach (ICD-10-PCS; 2025-04-17)
DX: L02.213 Cutaneous abscess of chest wall (principal); Z68.42 Body mass index [BMI] 45.0-49.9, adult; I48.92 Unspecified atrial flutter; L03.313 Cellulitis of chest wall; K21.9 Gastro-esophageal reflux disease without esophagitis; J44.9 Chronic obstructive pulmonary disease, unspecified; I10 Essential (primary) hypertension; E78.00 Pure hypercholesterolemia, unspecified; F31.9 Bipolar disorder, unspecified; E66.01 Morbid (severe) obesity due to excess calories; E11.9 Type 2 diabetes mellitus without complications; D35.01 Benign neoplasm of right adrenal gland; D35.02 Benign neoplasm of left adrenal gland; D50.9 Iron deficiency anemia, unspecified; B95.62 Methicillin resistant Staphylococcus aureus infection as the cause of diseases classified elsewhere; R91.1 Solitary pulmonary nodule; I71.21 Aneurysm of the ascending aorta, without rupture; I48.0 Paroxysmal atrial fibrillation; Z79.85 Long-term (current) use of injectable non-insulin antidiabetic drugs; Z79.84 Long term (current) use of oral hypoglycemic drugs; Z96.652 Presence of left artificial knee joint; Z98.84 Bariatric surgery status; Z87.891 Personal history of nicotine dependence; Z86.16 Personal history of COVID-19; Z87.01 Personal history of pneumonia (recurrent); Z79.899 Other long term (current) drug therapy; Z88.1 Allergy status to other antibiotic agents
CPT/HCPCS: 71260; 80048; 80053; 80202; 82565; 82607; 82962; 83036; 84484; 84520; 85025; 85027; 87070; 87075; 87147; 87186; 87205; 93005; 94640; 96374; 96375; 96376; 99285; Q9967

== ENCOUNTER 2025-05-10 23:50 | Inpatient (IN) | payer OTHER, SELFPAY ==
[2025-05-10 17:18] VITALS: BP 160/85
--- NOTE | 2025-05-10 19:01 | ED.GENMED ---
History of Present Illness
<Guerline Eric PA-C - Last Filed: 05/11/25 00:04>
General
Chief Complaint: Skin Problem
Source: patient
Exam Limitations: none
Time Seen by Provider: 05/10/25 18:50
History of Present Illness
History of Present Illness:
59yoM with history of atrial fibrillation on Pradaxa, hypertension, hyperlipidemia, type 2 diabetes, and COPD presenting for evaluation of right sided facial and scalp pain. Patient started to notice a boil in his right posterior scalp 2 days ago.
He was seen at [facility] and started on Bactrim for a presumed MRSA infection. He woke up this morning with redness around the R eye. He is also having severe periorbital and scalp pain with blurred vision. He had some chills earlier but denies
any fevers. He does not wear glasses or contacts. He was admitted earlier this month for a MRSA infection of the chest wall.
Phy Exam
<Guerline Eric PA-C - Last Filed: 05/11/25 00:04>
Physical Exam
Physical Exam:
Appears uncomfortable due to pain, nontoxic
General Physical Exam
General Presentation: well appearing
General Skin: warm and dry
General Habitus: normal
General Mental: alert
ENT Exam
ENT Exam: normocephalic and other (Carbuncle noted in right posterior scalp with palpable induration and tenderness. Swelling and erythema noted to the lower eyelid. PERRL. EOMs intact but elicit pain. )
Eye Exam
Eye Exam: PERRL and EOMI
Right 20/: 40
Left 20/: 20
Pulmonary Exam
Pulmonary Exam: no respiratory distress
Neurological Exam
Neurological Exam: alert
[place] Coma Scale
Eye Opening: Spontaneous
Verbal Response: Oriented
Motor Response: Obeys Commands
GCS Total Score: 15
Skin Exam
Skin Exam: normal color and warm/dry
Psychiatric Exam
Psychiatric Exam: normal mood/affect
Course
<Guerline Eric PA-C - Last Filed: 05/11/25 00:04>
Orders/Labs/Results
Orders:
Orders
05/10/25 Dinner
2000 calorie (17 carb) Diabetic
05/10/25 18:58
Visual Acuity- Treatment ONCE
HYDROmorphone [Dilaudid] 0.5 mg IV NOW STA
05/10/25 19:04
CT Orbits With Iv Contrast Urgent
Comment:
Reason For Exam: R eye pain, eval for orbital cellulitis
05/10/25 19:10
Complete Blood Count/With Diff Urgent
Comprehensive Metabolic Panel Urgent
05/10/25 19:40
HYDROmorphone [Dilaudid] 0.5 mg IV NOW STA
05/10/25 21:42
HYDROmorphone [Dilaudid] 1 mg IV NOW STA
05/10/25 22:46
Vancomycin [Vancocin] 2,000 mg 0.9% Sodium Chloride 500 ml [Nss] 500 ml IV NOW
05/10/25 23:00
Ferrous Sulfate [Feosol] 325 mg PO Q48H
05/10/25 23:06
Admit/Transfer Patient As Directed
Co-Sign Provider:
Level of Care: Inpatient admission
Assign to:: Medical/Surgical
Physician / Group: analia
Diagnosis: right sided blepharitis/ periorbital cellulitis
Reason for Hospitalization: right sided blepharitis/ periorbital cellulitis
Expected length of stay greater than two midnights?: Yes
ELOS- Estimated Length of Stay in days: 2
I certify the patient meets the requirements for IP care: Yes
PRN Pain Medication Management As Directed
May give lesser potent ordered pain med per pt: Yes
preference::
Protocol:: Medication orders for pain may be administered in a
manner that supports deferring to patient preference
when the pt is:
- Requesting an ordered lesser potent pain medication.
Least to most potent pain medications are defined
as: acetaminophen < NSAID < tramadol < opioids
(morphine, oxycodone, hydromorphone).
- Requesting a lesser dose of the same medication IF
ORDERED.
- Requesting a less intrusive route of administration
if both routes are prescribed by the provider (PO <
IV).
05/10/25 23:08
Code Status As Directed
Resuscitation Status: Full Code
05/10/25 23:54
Albuterol Sulfate [Ventolin Nebules] 5 mg INH Q6H PRN shortness of breath
Dextrose 50%-Water [Dextrose 50% Syringe] 12.5 grams IV [id number] PRN
Furosemide [Lasix] 40 mg PO DAILY PRN Fluid Retention/Swelling
Glucagon [GlucaGen] 1 mg IM PRN PRN
HYDROmorphone [Dilaudid] 1 mg IV Q4HPRN PRN
Piperacillin/Tazo 3.375 Gram [Zosyn] 3.375 gram in 50 ml IV Q6H
VANCOMYCIN Pharmacy to Dose [VANCOCIN Pharmacy to Dose] 1 each Pharmacy To Prepare [Call Pharmacy To Prepare] 0 ml IV PER PROTOCOL
albuterol-budesonide [Airsupra] 2 inh INH Q6HPRN PRN
05/10/25 23:54
Activity As Directed
Activity Level: As Tolerated
Bedside Glucose Monitoring As Directed
Frequency: AC&HS
Additional Instructions:: Change to q6h if pt on TPN, tube feeding or not eating
Sequential Compression Device [Pneumatic Compression Sleeves] As Directed
Type: Knee high
Vital Signs As Directed
Frequency: Per unit guidelines
Bipap [RESP] Routine
Patient to use own unit?: No
Inspiratory Pressure (cm H2O): 20
Expiratory Pressure (cm H2O): 16
DX Deep Vein Thrombosis Video Routine
05/11/25 06:00
Complete Blood Count/With Diff IN AM
Comprehensive Metabolic Panel IN AM
Glycohemoglobin (HgbA1c) IN AM
05/11/25 07:30
Insulin Aspart Corrective Low [Novolog Flexpen-Low Resistance] See Protocol SC AC
05/11/25 08:00
Amiodarone [Pacerone] 200 mg PO DAILY
Dabigatran Etexilate Mesylate [Pradaxa] 150 mg PO BID
Pantoprazole [Protonix] 40 mg PO DAILY
Rosuvastatin Calcium [Crestor] 10 mg PO DAILY
Spironolactone [Aldactone] 25 mg PO DAILY
kkrzwcrblp-mqgitimc-yijdceydso [Breztri Aerosphere] 2 inh INH BID
cyanocobalamin (vitamin B-12) [Vitamin B-12] 1,000 mcg PO DAILY
fluoxetine 20 mg PO DAILY
05/11/25 22:00
Olanzapine [Zyprexa] 5 mg PO HS
Abnormal Lab Results
05/10/25
19:10
RBC 4.67 L 10^6/uL
(4.70-6.10)
Hgb 11.8 L g/dL
(13.0-18.0)
Hct 36.5 L %
(39.0-52.0)
MCV 78.2 L fL
(80.0-94.0)
MCH 25.3 L pg
(27.0-31.0)
MCHC 32.3 L g/dL
(33.0-37.0)
RDW 19.3 H %
(11.5-14.5)
MPV 10.5 H fL
(7.4-10.4)
Immature Gran % 0.6 H %
(0-0.5)
Total Protein 6.1 L g/dl
(6.3-8.2)
05/10/25 19:10
05/10/25 19:10
Vital Signs
Initial and Last Documented VS:
Initial Vital Signs
Temp Pulse Resp BP Pulse Ox
98.0 F 66 22 160/85 96
05/10/25 17:18 05/10/25 17:18 05/10/25 17:18 05/10/25 17:18 05/10/25 17:18
Last Documented Vital Signs
Temp Pulse Resp BP Pulse Ox
97.4 F 65 20 159/79 97
05/10/25 23:40 05/10/25 23:40 05/10/25 23:40 05/10/25 23:40 05/10/25 23:40
<Shaunna Tompkins, DO - Last Filed: 05/10/25 19:51>
Orders/Labs/Results
Orders:
Orders
05/10/25 Dinner
2000 calorie (17 carb) Diabetic
05/10/25 18:58
Visual Acuity- Treatment ONCE
HYDROmorphone [Dilaudid] 0.5 mg IV NOW STA
05/10/25 19:04
CT Orbits With Iv Contrast Urgent
Comment:
Reason For Exam: R eye pain, eval for orbital cellulitis
05/10/25 19:10
Complete Blood Count/With Diff Urgent
Comprehensive Metabolic Panel Urgent
05/10/25 19:40
HYDROmorphone [Dilaudid] 0.5 mg IV NOW STA
05/10/25 21:42
HYDROmorphone [Dilaudid] 1 mg IV NOW STA
05/10/25 22:46
Vancomycin [Vancocin] 2,000 mg 0.9% Sodium Chloride 500 ml [Nss] 500 ml IV NOW
05/10/25 23:00
Ferrous Sulfate [Feosol] 325 mg PO Q48H
05/10/25 23:06
Admit/Transfer Patient As Directed
Co-Sign Provider:
Level of Care: Inpatient admission
Assign to:: Medical/Surgical
Physician / Group: analia
Diagnosis: right sided blepharitis/ periorbital cellulitis
Reason for Hospitalization: right sided blepharitis/ periorbital cellulitis
Expected length of stay greater than two midnights?: Yes
ELOS- Estimated Length of Stay in days: 2
I certify the patient meets the requirements for IP care: Yes
PRN Pain Medication Management As Directed
May give lesser potent ordered pain med per pt: Yes
preference::
Protocol:: Medication orders for pain may be administered in a
manner that supports deferring to patient preference
when the pt is:
- Requesting an ordered lesser potent pain medication.
Least to most potent pain medications are defined
as: acetaminophen < NSAID < tramadol < opioids
(morphine, oxycodone, hydromorphone).
- Requesting a lesser dose of the same medication IF
ORDERED.
- Requesting a less intrusive route of administration
if both routes are prescribed by the provider (PO <
IV).
05/10/25 23:08
Code Status As Directed
Resuscitation Status: Full Code
05/10/25 23:54
Albuterol Sulfate [Ventolin Nebules] 5 mg INH Q6H PRN shortness of breath
Dextrose 50%-Water [Dextrose 50% Syringe] 12.5 grams IV [id number] PRN
Furosemide [Lasix] 40 mg PO DAILY PRN Fluid Retention/Swelling
Glucagon [GlucaGen] 1 mg IM PRN PRN
HYDROmorphone [Dilaudid] 1 mg IV Q4HPRN PRN
Piperacillin/Tazo 3.375 Gram [Zosyn] 3.375 gram in 50 ml IV Q6H
VANCOMYCIN Pharmacy to Dose [VANCOCIN Pharmacy to Dose] 1 each Pharmacy To Prepare [Call Pharmacy To Prepare] 0 ml IV PER PROTOCOL
albuterol-budesonide [Airsupra] 2 inh INH Q6HPRN PRN
05/10/25 23:54
Activity As Directed
Activity Level: As Tolerated
Bedside Glucose Monitoring As Directed
Frequency: AC&HS
Additional Instructions:: Change to q6h if pt on TPN, tube feeding or not eating
Sequential Compression Device [Pneumatic Compression Sleeves] As Directed
Type: Knee high
Vital Signs As Directed
Frequency: Per unit guidelines
Bipap [RESP] Routine
Patient to use own unit?: No
Inspiratory Pressure (cm H2O): 20
Expiratory Pressure (cm H2O): 16
DX Deep Vein Thrombosis Video Routine
05/11/25 06:00
Complete Blood Count/With Diff IN AM
Comprehensive Metabolic Panel IN AM
Glycohemoglobin (HgbA1c) IN AM
05/11/25 07:30
Insulin Aspart Corrective Low [Novolog Flexpen-Low Resistance] See Protocol SC AC
05/11/25 08:00
Amiodarone [Pacerone] 200 mg PO DAILY
Dabigatran Etexilate Mesylate [Pradaxa] 150 mg PO BID
Pantoprazole [Protonix] 40 mg PO DAILY
Rosuvastatin Calcium [Crestor] 10 mg PO DAILY
Spironolactone [Aldactone] 25 mg PO DAILY
sjbgqeglxv-losbhsys-cpuixzuyyo [Breztri Aerosphere] 2 inh INH BID
cyanocobalamin (vitamin B-12) [Vitamin B-12] 1,000 mcg PO DAILY
fluoxetine 20 mg PO DAILY
05/11/25 22:00
Olanzapine [Zyprexa] 5 mg PO HS
Abnormal Lab Results
05/10/25
19:10
RBC 4.67 L 10^6/uL
(4.70-6.10)
Hgb 11.8 L g/dL
(13.0-18.0)
Hct 36.5 L %
(39.0-52.0)
MCV 78.2 L fL
(80.0-94.0)
MCH 25.3 L pg
(27.0-31.0)
MCHC 32.3 L g/dL
(33.0-37.0)
RDW 19.3 H %
(11.5-14.5)
MPV 10.5 H fL
(7.4-10.4)
Immature Gran % 0.6 H %
(0-0.5)
Total Protein 6.1 L g/dl
(6.3-8.2)
05/10/25 19:10
05/10/25 19:10
Vital Signs
Initial and Last Documented VS:
Initial Vital Signs
Temp Pulse Resp BP Pulse Ox
98.0 F 66 22 160/85 96
05/10/25 17:18 05/10/25 17:18 05/10/25 17:18 05/10/25 17:18 05/10/25 17:18
Last Documented Vital Signs
Temp Pulse Resp BP Pulse Ox
97.4 F 65 20 159/79 97
05/10/25 23:40 05/10/25 23:40 05/10/25 23:40 05/10/25 23:40 05/10/25 23:40
Shilt;Guerline Eric PA-C - Last Filed: 05/11/25 00:04>
MDM/Problems Addressed
Differential Diagnosis Includes:
59yoM here with R scalp/periorbital swelling/redness. On Bactrim x 2 days. Now with worsening pain and blurred vision. Recently admitted for MRSA infection of chest wall. He is hypertensive with otherwise normal vitals. There is evidence of a
carbuncle in the posterior scalp on exam as well as swelling/erythema to the lower eyelid. Pain noted with extraocular movements. Differential diagnosis includes: Abscess, periorbital cellulitis, blepharitis, hordeolum
Initial ED plan: Check CBC, CMP, and CT orbits. IV Dilaudid for pain.
<Guerline Eric PA-C - Last Filed: 05/11/25 00:04>
*Pulse Oximetry
SaO2: 96
Oxygen Mode of Delivery: Room air
Patient hypoxic: no (96%)
*Critical Care Note
Total Time (30-74mins, 75-104mins- exclusive of procedures): Not Applicable
<Guerline Eric PA-C - Last Filed: 05/11/25 00:04>
Update Note
Update Note:
Labs unremarkable including normal white count. CT does not show any evidence of orbital cellulitis. Patient requiring multiple doses of IV Dilaudid for pain control. IV vancomycin ordered and patient admitted for further management.
ED Attending Note
<Guerline Eric PA-C - Last Filed: 05/11/25 00:04>
-
Portions of this chart may have been created with voice recognition software.� Occasional wrong word or��sound alike� substitutions may have occurred due to the inherent limitations of voice recognition software.
<Shaunna Tompkins DO - Last Filed: 05/10/25 19:51>
ED Attending Note
Patient seen and examined by attending physician: Yes
I performed the substantive portion of visit, reviewed & personally made and approve the management plan that is documented in note by myself or DELMIS.: Yes
I performed a history and physical exam of patient and discussed management with resident, I reviewed resident's note and agree with documented findings and plan of care.: Yes
ED Attending Note:
59-year-old male with history of COPD, bipolar, atrial fibrillation presenting to the emergency department for concern of skin infection. Patient reports recent admission for a chest wall abscess, requiring 1 week of vancomycin, with suspected
MRSA. Patient had been discharged on Bactrim. He notes 2 days ago he started to have a small area of swelling and redness to the right parietal scalp, likened to a pimple. He went to [facility] and was discharged on Bactrim. Today he woke
up with redness and swelling to the right eye. Notes generalized pain and blurry vision from the swelling. Denies fever.
Vital signs are significant for mild hypertension. On exam patient is nontoxic. Small area to the right parietal scalp with erythema, no significant fluctuance or drainable collection. There is also swelling to the right lower eyelid with pain on
extraocular movements. Ultimately suspect again skin infection, likely cellulitis, preseptal cellulitis. However, given patient's discomfort, orbital cellulitis is also consideration, with plan for CT head imaging.
Discharge Plan
Departure
Patient Disposition: Admit
Date of Disposition: 05/10/25
Time of Disposition: 22:43
Presentation/result/management discussed w/ accepting MD/DO: Hospitalist
Discharge Problem:
Periorbital cellulitis of right eye, Intractable pain
Interventions
Interventions:
*Risk Screen - Suicide Last Done: 05/10/25 17:18
*General Assessment Last Done: 05/10/25 19:04
*Neglect/Abuse Screening Last Done: 05/10/25 19:04
*ED- Fall Risk Assessment Last Done: 05/10/25 19:04
*ED COVID-19 Vaccine History Last Done: 05/10/25 19:04
*Nursing Disposition Last Done: 05/10/25 23:44
ED-Skin Assessment Last Done: 05/10/25 19:04
Discharge Date and Time
Discharge Date/Time: 05/10/25 23:45
[2025-05-10] MEDS: DILAUDID 0.5 MG IV ×2 (19:10→19:50)
[2025-05-10 19:23] LABS: Hematocrit 36.5 % (39.0-52.0); Hemoglobin 11.8 g/dL (13.0-18.0); Mean Corp Hgb Conc. 32.3 g/dL (33.0-37.0); Mean Corpuscular Volume 78.2 fL (80.0-94.0); Nucleated Red Blood Cells % 0 % (-); Platelet Count 177 10^3/uL (130-400); Red Cell Dist. Width 19.3 % (11.5-14.5)
[2025-05-10 19:44] LABS: ALT (SGPT) 12 U/L (0-50); AST (SGOT) 19 U/L (17-59); Albumin 4.0 g/dl (3.5-5.0); Alkaline Phosphatase 79 U/L (38-126); Blood Urea Nitrogen 13 mg/dl (9-20); Calcium 8.9 mg/dl (8.4-10.2); Carbon Dioxide 24 mmol/L (22-30); Chloride 106 mmol/L (98-107); Glucose 97 mg/dl (70-99); Potassium 4.6 mmol/L (3.5-5.1); Sodium 135 mmol/L (135-145); Total Protein 6.1 g/dl (6.3-8.2); eGFR > 60.00
[2025-05-10] MEDS: DILAUDID 1 MG IV (21:46)
[2025-05-10 22:41] VITALS: BMI 51.0
[2025-05-10] MEDS: VANCOCIN 540 MG IV (23:11)
--- NOTE | 2025-05-10 23:17 | HPS.HSE ---
Family Physician
-
Family Physician: El Murray MD
Chief Complaint
-
eye pain and swelling
History of Present Illness
59-year-old male past medical history of chest wall cellulitis/MRSA abscess status post I&D, COPD, paroxysmal atrial fibrillation on Pradaxa, hypertension, iron deficiency anemia, type 2 diabetes, hyperlipidemia, pulmonary nodule, ascending aorta
aneurysm, adrenal adenoma, bipolar disease, pulmonary embolism, sleep apnea, alcohol use disorder, obesity, presenting with right-sided facial and scalp pain. He started to notice a boil on his right posterior scalp 2 days ago. He was seen at
[facility] and started on Bactrim for presumed MRSA infection. He woke up this morning with redness around the right eye particularly right lower eyelid. He is also having severe periorbital and scalp pain with blurred vision. He had some chills
earlier but denies any fever. He does not wear glasses or contacts.
He had a similar infection around 2 months ago except in the left eye and was hospitalized at [facility]. He states that he was discharged with samples of an expensive oral antibiotic by the infectious disease doctor does not remember which
antibiotic.
Medical History
Past Medical History
Past Medical History: Reports Other (hest wall cellulitis/MRSA abscess status post I&D, COPD, paroxysmal atrial fibrillation on Pradaxa, hypertension, iron deficiency anemia, type 2 diabetes, hyperlipidemia, pulmonary nodule, ascending aorta
aneurysm, adrenal adenoma, bipolar disease, pulmonary embolism, sleep apnea, alcohol use disord)
Past Surgical History: Reports None
Social History
Tobacco: Former Smoker
Alcohol: Former
Drug: None
Family History
Family History: Not pertinent
Allergies / Home Medications
Allergies reflects when Allergies were last updated in [facility].
Home Medications with original date entered in [facility]
Allergy/Medication List:
Allergies
Allergy/AdvReac Type Severity Reaction Status Date / Time
daptomycin Allergy rhabdo Verified 05/10/25 17:18
Home Medications
albuterol 90 mcg-budesonide 80 mcg/actuation HFA aerosol inhaler (Airsupra) 2 inh inhalation Q6HPRN PRN shortness of breath 04/12/25
albuterol sulfate 2.5 mg/0.5 mL solution for nebulization 5 mg inhalation Q6H PRN shortness of breath 04/12/25
amiodarone 200 mg tablet 200 mg PO DAILY Blood Clot Prevention/Tx 04/12/25
budesonide 160 mcg-glycopyr 9 mcg-formot 4.8 mcg/actuation HFA inhaler (Breztri Aerosphere) 2 inh inhalation BID Lung/Breathing Issues 04/12/25
dabigatran etexilate 75 mg capsule (Pradaxa) 150 mg PO BID Blood Clot Prevention/Tx 04/12/25
ferrous sulfate 325 mg (65 mg iron) tablet 325 mg PO Q48H Supplement 04/12/25
fluoxetine 20 mg tablet 20 mg PO DAILY Fluid Retention/Swelling 04/12/25
metformin 500 mg tablet 500 mg PO BID@0800,1700 Diabetes 04/12/25
pantoprazole 40 mg tablet,delayed release (Protonix) 40 mg PO DAILY Gastrointestinal Issue 04/12/25
rosuvastatin 10 mg tablet (Crestor) 10 mg PO DAILY High Cholesterol 04/12/25
spironolactone 25 mg tablet 25 mg PO DAILY Fluid Retention/Swelling 04/12/25
Held on 04/19/25. Instructions: Resume on 04/26/25.
tirzepatide 7.5 mg/0.5 mL subcutaneous pen injector (Mounjaro) 7.5 mg SC QWEEK 04/12/25
cyanocobalamin (vitamin B-12) 1,000 mcg tablet (Vitamin B-12) 1,000 mcg PO DAILY #30 tabs 04/19/25
furosemide 40 mg tablet (Lasix) 40 mg PO DAILY PRN Fluid Retention/Swelling #0 tabs 04/19/25
olanzapine 5 mg tablet 5 mg PO HS #0 tabs 04/19/25
oxycodone-acetaminophen 5 mg-325 mg tablet 1 tab PO Q8HPRN PRN moderate pain #5 tabs 04/19/25
sulfamethoxazole 800 mg-trimethoprim 160 mg tablet 2 tab PO BID #20 tabs 04/19/25
Review of Systems
-
History Source: Patient
A 12 point ROS was completed and negative except as noted: Yes
Constitutional: Reports No Symptoms
EENT: Reports No Symptoms
Respiratory: Reports No Symptoms
Cardiac: Reports No Symptoms
Abdomen/GI: Reports No Symptoms
: Reports No Symptoms
Musculoskeletal: Reports No Symptoms
Skin: Reports No Symptoms
Neurological: Reports No Symptoms
Endocrine: Reports No Symptoms
Hematologic/Lymphatic: Reports No Symptoms
Psych: Reports No Symptoms
Physical Exam
Vital Signs
Vital Signs
Temp Pulse Resp BP Pulse Ox
98.0 F 66 18 160/85 96
05/10/25 17:18 05/10/25 17:18 05/10/25 21:29 05/10/25 17:18 05/10/25 19:01
Physical Exam
General: Well Developed, Well Nourished and No Apparent Distress
HEENT: NormoCephalic, Moist mucous membranes, Atraumatic and Other (eye lower eyelid sty, erythema of both lower eyelids )
Respiratory: Clear
Cardiac: S1/S2 and Regular Rhythm; No Murmur or Rub
GI: Soft, Non Tender, Non Distended and Normal Bowel Sounds; No Organomegaly
Rectal: Deferred by Provider
Musculoskeletal: No Clubbing, No Cyanosis and No Edema
Skin: No Rash
Neuro: Nonfocal/grossly intact
Laboratory Results
-
05/10/25 19:10
05/10/25 19:10
Laboratory Results
Total Bilirubin 0.4 mg/dl (0.2-1.3) 05/10/25 19:10
AST 19 U/L (17-59) 05/10/25 19:10
ALT 12 U/L (0-50) 05/10/25 19:10
Alkaline Phosphatase 79 U/L (38-126) 05/10/25 19:10
Data Reviewed
-
Lab Data: Labs Reviewed by me
Old Records: Reviewed
Impression/Plan
-
IMPRESSION:
PLAN:
# Right sided blepharitis/periorbital cellulitis
-Does have blurry vision of the right eye with pain with extraocular movement
- CT scan of orbits showed no evidence of orbital extension, no evidence of orbital cellulitis or abscess
- Vancomycin/Zosyn
- Dilaudid for pain
# Right posterior scalp boil
- Antibiotics as above
History of chest wall cellulitis/MRSA abscess status post I&D
Paroxysmal atrial fibrillation
- Continue amiodarone
Essential hypertension
- Continue spironolactone
Iron deficiency anemia
- Hemoglobin stable 11.8
- Continue ferrous sulfate
Type 2 diabetes
- Hold metformin
- Insulin sliding scale
Hyperlipidemia
- Continue statin
Pulmonary nodule
Ascending aortic aneurysm
Adrenal adenoma
Bipolar disorder
- Continue fluoxetine, olanzapine
History of pulmonary embolism
COPD
- Continue Breztri
- Continue albuterol
History of gastric bypass
Chronic lower extremity
- Continue Lasix
Obstructive sleep apnea
- Patient on nightly BiPAP
Alcohol use disorder
- Sober for 90 days
Obesity
Former smoker
Full code
DVT prophylaxis�Pradaxa
Diabetic diet
[2025-05-10 23:40] VITALS: BP 159/79
[2025-05-11] MEDS: FEOSOL 325 MG PO (00:11)
[2025-05-11] MEDS: DILAUDID 1 MG IV ×2 (00:11→05:10)
[2025-05-11 00:23] LABS: Glucose - Point of Care 119 mg/dl (70-99)
[2025-05-11 00:29] VITALS: BMI 50.7
--- NOTE | 2025-05-11 01:02 | RESPNOTE ---
PT is ordered for BIPAP for Hs use, which he follows at home. PT cannot wear the BIPAP due to facial and eye swelling and some bumps on his head. BIPAP was pulled.
[2025-05-11 01:16] VITALS: BMI 50.7
[2025-05-11] MEDS: ZOSYN 50 IV ×2 (01:53→05:12)
[2025-05-11] MEDS: TORADOL 15 MG IV (01:54)
[2025-05-11] MEDS: TYLENOL 1000 MG PO (03:59)
--- NOTE | 2025-05-11 05:52 | PTCARENOTE ---
Pt arrived to unit from ED on stretcher at 2335. Pt ambulated to bed w/o assist-gait steady. Pt arrived on loading dose of Vancomycin. Pt reported pain in right eye-See MAR. Assessment of right eye in nursing shift assessment. Pt oriented to unit &
room, bed in lowest position and locked, call pillai within reach. Pt states no further needs at this time.
[2025-05-11 06:35] LABS: Hematocrit 34.7 % (39.0-52.0); Hemoglobin 11.2 g/dL (13.0-18.0); Mean Corp Hgb Conc. 32.3 g/dL (33.0-37.0); Mean Corpuscular Volume 79.0 fL (80.0-94.0); Nucleated Red Blood Cells % 0 % (-); Platelet Count 149 10^3/uL (130-400); Red Cell Dist. Width 19.0 % (11.5-14.5)
[2025-05-11 06:57] LABS: ALT (SGPT) 11 U/L (0-50); AST (SGOT) 18 U/L (17-59); Albumin 3.6 g/dl (3.5-5.0); Alkaline Phosphatase 75 U/L (38-126); Blood Urea Nitrogen 13 mg/dl (9-20); Calcium 8.8 mg/dl (8.4-10.2); Carbon Dioxide 22 mmol/L (22-30); Chloride 106 mmol/L (98-107); Estimated Creatinine Clearance 120 ml/min; Glucose 94 mg/dl (70-99); Potassium 4.5 mmol/L (3.5-5.1); Sodium 135 mmol/L (135-145); Total Protein 5.8 g/dl (6.3-8.2); eGFR > 60.00
[2025-05-11 07:38] VITALS: BP 142/64
[2025-05-11] MEDS: SYMBICORT 160/4.5 MCG INHALER 2 PUFF INH ×2 (07:38→20:13)
[2025-05-11] MEDS: SPIRIVA RESPIMAT 2.5 MCG 2 PUFF INH (07:38)
[2025-05-11 07:39] LABS: Glucose - Point of Care 97 mg/dl (70-99)
--- NOTE | 2025-05-11 08:25 | W.PN.HOSP.TC ---
Addendum entered and electronically signed by Josefa Huertas MD 05/11/25 13:24:
I saw and evaluated the patient. I reviewed the resident's plan of care and agree except for changes in my documentation. Patient states that he was seen at [facility] 3 days ago and was started on Bactrim for scalp infection. Then he woke
up Thursday with redness in the eyelid
59-year-old male with scalp infection and also redness around the right eye
On examination
Awake alert
Posterior right scalp small area of abscess/fluctuance
Right lower eyelid with a stye appearance and redness in the lower eyelid. Patient complains of blurry vision on exam
# Periorbital cellulitis/stye
Treat with vancomycin has history of MRSA
Because of the blurry vision we have also requested ophthalmology evaluation however I doubt any orbital cellulitis
# Scalp infection-May need I&D
Continue vancomycin
# Recent chest wall cellulitis with MRSA status post I&D by Dr. Paredes on 04/13/2025-chest wall looks scabbed
# COVID-19 infection 04/02/2025 treated with remdesivir at [facility]
# COPD-continue Spiriva, Breztri or equivalent. Not exacerbation
# Paroxysmal atrial fibrillation-continue Pradaxa, amiodarone
# Diabetes-hemoglobin A1c 7.8. Continue metformin Accu-Cheks and sliding scale coverage
# Hyperlipidemia-continue statin
# 4 mm pulmonary nodule-outpatient workup
# Aneurysmal dilatation of ascending aorta 4.4 centimeter-outpatient follow-up
# Adrenal adenoma-outpatient follow-up
# History of PE in 2014
# Bipolar disease-continue olanzapine, fluoxetine
# Sleep apnea-BiPAP
# Alcohol abuse sober for 90 days now goes to a partial program and in a sober house now
# Obesity with a BMI of 50-on Mounjaro 7.5 mg every week as outpatient-History of gastric bypass in 2004.
# Ex-smoker
# DVT prophylaxis-Pradaxa
# Full code
Part of this note was created using voice recognition system. Occasional wrong word or��sound alike� substitutions may have inadvertently occurred due to the inherent limitations of voice recognition software. If noted kindly bring it to my
attention for correction.
Original Note:
Today's Communication/Plan
-
For right erythema, swelling, and pain with extraocular movements, consulted ophthalmology for evaluation of possible orbital cellulitis.
For right posterior scalp boil, consulted surgery for potential drainage. Pending recommendations, including whether anticoagulation with dabigatran needs to be held.
For pain control, started oxycodone and weaning hydromorphone.
Given history of MRSA chest wall abscess, continued vancomycin. Switched Zosyn to cefepime due to increased risk of nephrotoxicity of Zosyn and vancomycin combination.
Monitoring blood pressure as we manage pain.
Assessment / Plan
Assessment / Plan
Mr. Patrick Zeng is a 59-year-old man with a PMH notable for chest wall cellulitis/MRSA abscess s/p I&D, COPD, paroxysmal A-fib (Pradaxa), hypertension, JORDAN, T2DM, HLD, pulmonary nodule, ascending aortic aneurysm, adrenal adenoma, bipolar
disorder, PE, JENNIFER, and AUD, who is presenting with right eye lower lid erythema, swelling, and pain, as well as a posterior right scalp boil with pain.
He states that IV Toradol was effective for the pain, Tylenol was not. He has received hydromorphone IV 0.5 mg x 2 and 1 [address] head and orbits: Right blepharitis. No orbital cellulitis, extension, or abscess.
His right eye lower lid
His chest wall abscess was drained by general surgery. His posterior right scalp boil was fluctuant. Since it is causing him significant pain, he is requesting it to be drained.
PLAN:
# Right sided blepharitis/periorbital cellulitis
History of chest wall cellulitis/MRSA abscess status post I&D
- blurry vision of the right eye and pain with extraocular movement
- CT scan of orbits showed no evidence of orbital extension, no evidence of orbital cellulitis or abscess. Right blepharitis
- Vancomycin 05/10/2025�
- Cefepime 05/11/2025�. Zosyn 05/10/202505/11/2025; stopped due to concerns of nephrotoxicity combination with vancomycin
�Consulted ophthalmology to evaluate for orbital cellulitis versus preseptal cellulitis. Even though CT did not demonstrate orbital cellulitis, patient had pain with extraocular movements.
# Right posterior scalp boil
- Antibiotics as above
- Oxycodone 5 mg every 6 hours as needed for pain. Weaning Dilaudid
� Consulted surgery for potential drainage
#Paroxysmal atrial fibrillation
- Continue amiodarone
#Essential hypertension
- Continue spironolactone
Systolic blood pressure up to 160s, which may be due to pain. Will try to control pain first prior to adjusting antihypertensive regimen
Iron deficiency anemia
- Hemoglobin stable 11.8
- Continue ferrous sulfate
Type 2 diabetes
- Hold metformin
- Insulin sliding scale
Hyperlipidemia
- Continue statin
Pulmonary nodule
Ascending aortic aneurysm
Adrenal adenoma
Bipolar disorder
- Continue fluoxetine, olanzapine
History of pulmonary embolism
COPD
- Continue Breztri
- Continue albuterol
History of gastric bypass
Chronic lower extremity
- Continue Lasix
Obstructive sleep apnea
- Patient on nightly BiPAP
Alcohol use disorder
- Sober for 90 days
Obesity
Former smoker
Full code
DVT prophylaxis�Pradaxa
GI prophylaxis�pantoprazole
Diabetic diet
Anticipated Discharge: 24 - 48 hours
Subjective/Interval History
-
Date of Service: May 11, 2025
No acute events overnight. He continues to feel tenderness at his right eye, which has an erythematous and swollen lower lid.
Patient endorses 7 out of 10 pain of right posterior scalp boil, which is improved from 10 out of 10. He requested IV Toradol because it was effective in the ED. Due to possible I&D of his right posterior scalp oil, we are opting for oxycodone
while decreasing his hydromorphone. He requested drainage of his posterior scalp oil, after previous drainage of his chest wall abscess provided relief.
Objective Data
-
Labs:
Laboratory Results
05/11/25
05:39
WBC 5.6
Hgb 11.2 L
Hct 34.7 L
Plt Count 149
Sodium 135
Potassium 4.5
Chloride 106
Carbon Dioxide 22
BUN 13
Creatinine 1.0
Glucose 94
Calcium 8.8
Total Bilirubin 0.7
AST 18
ALT 11
Alkaline Phosphatase 75
Vital Signs:
Vital Signs
Temp Pulse Resp BP Pulse Ox
97.8 F 64 18 142/64 97
05/11/25 07:38 05/11/25 07:41 05/11/25 07:41 05/11/25 07:38 05/11/25 07:41
I&O
05/10/25 05/11/25 05/12/25
06:59 06:59 06:59
Intake Total 1110 / 1110
Balance 1110 / 1110
Review of Systems
-
History Source: Patient
All other systems: Reviewed and negative
Physical Exam
-
General: Well Developed, Well Nourished and Pain (Greatest pain at right posterior scalp boil; very sensitive to palpation. Right eye tenderness and right face (maxillary) hyperesthesia)
HEENT: Normocephalic, Atraumatic, Moist Mucous Membranes, Anicteric, No Ptosis, PERRLA, Nose Appears Normal, Ears Appear Normal and Other (Right eye pain greatest with abduction; also experiences right eye pain on adduction and and torsion. EOMI.
Visual sanchez intact)
Respiratory: Wheezes
Cardiac: Regular Rhythm and S1/S2
GI: Soft, Nontender, Normal Bowel Sounds and Distended
Skin: Warm and Dry
Neuro: Awake, Alert and Oriented
Psych: Calm
Data Reviewed
-
Total Time Spent with Patient (in minutes): 25
Diagnostic Radiology: Report Reviewed by me
CT Scan: Report Reviewed by me
Labs: Labs Reviewed by me
[2025-05-11] MEDS: PRADAXA 150 MG PO ×2 (08:38→20:13)
[2025-05-11] MEDS: ALDACTONE 25 MG PO (08:39)
[2025-05-11] MEDS: PROZAC 20 MG PO (08:40)
[2025-05-11] MEDS: VITAMIN B-12 1000 MCG PO (08:40)
[2025-05-11] MEDS: PROTONIX 40 MG PO (08:40)
[2025-05-11] MEDS: CRESTOR 10 MG PO (08:40)
[2025-05-11] MEDS: PACERONE 200 MG PO (08:41)
--- NOTE | 2025-05-11 09:22 | PHA.VAN.IN ---
Assessment
- Assessment
Renal Function: Appears similar to baseline
Concomitant Antimicrobials: cefepime
- Previous Dosing Experience
Previous Regimen: Vanc 1750mg Q12H
Date of Regimen: March - April 2025
Provided AUC of: 495
Patient's SCR is: Similar to previous dosing experience
Patient's weight is: Similar to previous dosing experience
Regimen provided the following additional patient-specific PK from calculations on 04/16 and 04/19:
04/16/25 04/19/25
Levels draw after dose # 6th maintenance dose 12th maintenance dose
AUC 394 495
Cmax 20.9 mcg/ml
(peak drawn late) 26.6 mcg/ml
(pk drawn appr)
Cmin 12.6 mcg/ml 15.5 mcg/ml
ke 0.0508 0.0542
half-life 13.7 H 12.8 H
Vd 174.78 L (1.1 L/kg) 130.5 L (0.8 L/kg)
Vanc Cl 148 ml/min 118 ml/min
Patient had accumulation between 04/16 and 04/19 --> may eventually require Q24H interval but likely slow to accumulate with weight > 100kg
AUC Dosing Plan
- Empiric Dosing
Maintenance Regimen: Vanc 1750mg Q12H starting at 1800
Will start with 1750mg Q12H based on prior dosing experience
Anticipate patient will require lower dosing once he accumulates - consider preemptively switching to Vanc 1500mg Q12H
- Monitoring
No levels ordered at this time: consider levels in next few days
Pharmacokinetics Vancomycin I
- -
Patient Age: 59
Patient Sex: Male
Vancomycin Day #: 1
Indication: Eye Or Ent Infection
Requesting Provider: Dr. Salas
Pertinent Antimicrobial Allergies:
daptomycin - rhabdomyolysis
Height / Weight:
Height 5 ft 10 in
Actual Weight 160.39 kg
Pertinent Past Medical History: BMI ~51, DM 2
- Vital Signs / Lab Results
Temp Pulse Resp BP Pulse Ox
97.8 F 64 18 142/64 97
05/11/25 07:38 05/11/25 08:41 05/11/25 07:41 05/11/25 08:41 05/11/25 07:41
Lab Results - Hematology
05/10/25 05/11/25
19:10 05:39
WBC 5.4 5.6
Lab Results - Chemistry
05/10/25 05/11/25
19:10 05:39
BUN 13 13
Creatinine 1.0 1.0
Estimated Creat Clear 120
Albumin 4.0 3.6
[2025-05-11] MEDS: DILAUDID 0.5 MG IV ×3 (09:47→20:13)
[2025-05-11] MEDS: MAXIPIME 2000 MG IV ×2 (09:48→21:39)
[2025-05-11] MEDS: STERILE WATER FOR INJECTION 10 ML IV ×2 (09:48→21:39)
[2025-05-11 12:19] LABS: Glucose - Point of Care 100 mg/dl (70-99)
--- NOTE | 2025-05-11 12:44 | CM ---
Reviewed the chart notes and spoke with the patient at the bedside. The patient was recently hospitalized and discharged to home with [facility] services (04/12-04/19). The patient resides in a sober home with eight other men. The patient's room is on
the first floor. The patient reports no DME/SNF in the past. The patient confirmed his pharmacy of choice is [facility]. Per patient, discharged him from service for chest wound last week. continues to be available to
patient/family and is monitoring medical plan for needs at discharge.
Plan: Discharge plans will depend on the patient's progress.
[2025-05-11] MEDS: ROXICODONE 5 MG PO ×3 (13:06→23:01)
[2025-05-11] MEDS: TYLENOL 650 MG PO ×2 (14:27→23:00)
[2025-05-11 15:12] VITALS: BP 132/90
--- NOTE | 2025-05-11 16:04 | W.PN.UPDATE ---
Update Note
Progress Note Update
Pt seen in consult for infected inclusion cyst of right occiput.
Bedside I&D performed and cultures obtained.
Full consult note to follow.
[2025-05-11 17:07] LABS: Glucose - Point of Care 97 mg/dl (70-99)
[2025-05-11] MEDS: VANCOCIN 535 MG IV (17:28)
[2025-05-11] MEDS: GLUCOPHAGE 500 MG PO (17:28)
[2025-05-11 21:02] LABS: Glucose - Point of Care 112 mg/dl (70-99)
[2025-05-11] MEDS: ZYPREXA 5 MG PO (21:39)
[2025-05-11 23:35] VITALS: BP 116/44
[2025-05-12] MEDS: DILAUDID 0.5 MG IV ×2 (01:55→08:41)
[2025-05-12 03:02] VITALS: BP 131/70
[2025-05-12 05:00] VITALS: BMI 50.7
[2025-05-12] MEDS: TYLENOL 650 MG PO (05:04)
[2025-05-12] MEDS: ROXICODONE 5 MG PO (05:05)
[2025-05-12] MEDS: VANCOCIN 535 MG IV ×2 (05:55→16:41)
[2025-05-12 07:00] VITALS: BP 137/69
[2025-05-12] MEDS: SYMBICORT 160/4.5 MCG INHALER 2 PUFF INH ×2 (07:23→19:54)
[2025-05-12] MEDS: SPIRIVA RESPIMAT 2.5 MCG 2 PUFF INH (07:23)
[2025-05-12 07:30] LABS: Glucose - Point of Care 89 mg/dl (70-99)
[2025-05-12 07:48] LABS: Hematocrit 36.1 % (39.0-52.0); Hemoglobin 11.7 g/dL (13.0-18.0); Mean Corp Hgb Conc. 32.4 g/dL (33.0-37.0); Mean Corpuscular Volume 79.5 fL (80.0-94.0); Nucleated Red Blood Cells % 0 % (-); Platelet Count 160 10^3/uL (130-400); Red Cell Dist. Width 19.3 % (11.5-14.5)
[2025-05-12] MEDS: VITAMIN B-12 1000 MCG PO (08:14)
[2025-05-12] MEDS: GLUCOPHAGE 500 MG PO ×2 (08:14→16:05)
[2025-05-12] MEDS: PROZAC 20 MG PO (08:14)
[2025-05-12] MEDS: PROTONIX 40 MG PO (08:14)
[2025-05-12] MEDS: PRADAXA 150 MG PO ×2 (08:14→21:17)
[2025-05-12] MEDS: CRESTOR 10 MG PO (08:14)
[2025-05-12] MEDS: ALDACTONE 25 MG PO (08:14)
[2025-05-12] MEDS: PACERONE 200 MG PO (08:15)
[2025-05-12 08:28] LABS: Blood Urea Nitrogen 9 mg/dl (9-20); Calcium 8.9 mg/dl (8.4-10.2); Carbon Dioxide 25 mmol/L (22-30); Chloride 107 mmol/L (98-107); Estimated Creatinine Clearance > 125 ml/min; Glucose 91 mg/dl (70-99); Sodium 137 mmol/L (135-145); eGFR > 60.00
[2025-05-12 08:34] LABS: Potassium 4.7 mmol/L (3.5-5.1)
--- NOTE | 2025-05-12 08:34 | W.PN.HOSP.TC ---
Today's Communication/Plan
-
Discontinued cefepime since scalp wound culture grew gram-positive cocci. Reduce antibiotic regimen to vancomycin monotherapy.
Increased oxycodone to 10 mg due to inadequate pain control. Pending ophthalmology recommendations for possible I&D of eye vesicle.
Assessment / Plan
Assessment / Plan
Mr. Patrick Zeng is a 59-year-old man with a PMH notable for chest wall cellulitis/MRSA abscess s/p I&D, COPD, paroxysmal A-fib (Pradaxa), hypertension, JORDAN, T2DM, HLD, pulmonary nodule, ascending aortic aneurysm, adrenal adenoma, bipolar
disorder, PE, JENNIFER, and AUD, who is presenting with right eye lower lid erythema, swelling, and pain, as well as a posterior right scalp boil with pain.
PLAN:
# Right sided blepharitis/periorbital cellulitis
History of chest wall cellulitis/MRSA abscess status post I&D
- blurry vision of the right eye and pain with extraocular movement
- CT scan of orbits showed no evidence of orbital extension, no evidence of orbital cellulitis or abscess. Right blepharitis
- Vancomycin 05/10/2025�
- Cefepime 05/11/202505/12/2025, discontinued due to cultures showing gram positive cocci. Zosyn 05/10/202505/11/2025; stopped due to concerns of nephrotoxicity combination with vancomycin
� Consulted ophthalmology to evaluate for orbital cellulitis versus preseptal cellulitis. Even though CT did not demonstrate orbital cellulitis, patient had pain with extraocular movements.
- Pending scalp wound cultures
- Oxycodone 10 mg every 6 hours as needed for pain. Weaning Dilaudid
He states that Percocet 2 tabs every 4 hours as needed or IV Toradol for effective for pain previously.
# Right posterior scalp boil
- Antibiotics as above
�I&D by surgery 05/11/2025 significantly relieved pain
#Paroxysmal atrial fibrillation
- Continue amiodarone
#Essential hypertension
- Continue spironolactone
Systolic blood pressure up to 160s, which may be due to pain. Will try to control pain first prior to adjusting antihypertensive regimen
Iron deficiency anemia
- Hemoglobin stable 11.8
- Continue ferrous sulfate
Type 2 diabetes
- Metformin 500 mg twice daily
- Insulin sliding scale
Hyperlipidemia
- Continue statin
Pulmonary nodule
Ascending aortic aneurysm
Adrenal adenoma
Bipolar disorder
- Continue fluoxetine, olanzapine
History of pulmonary embolism
COPD
- Continue Breztri
- Continue albuterol
History of gastric bypass
Obesity
Obstructive sleep apnea
- Patient on nightly BiPAP
Chronic lower extremity edema
- Continue Lasix
Alcohol use disorder
- Sober for 90 days
Former smoker
Full code
DVT prophylaxis�Pradaxa
GI prophylaxis�pantoprazole
Diabetic diet
Anticipated Discharge: 24 - 48 hours
Subjective/Interval History
-
Date of Service: May 12, 2025
Mr. Patrick Zeng felt more pain this morning in his right lower eyelid. He did not feel his pain medication dosage was adequate for controlling his pain yesterday and overnight. He requests being prescribed 2 tabs of Percocet as needed every 4
hours, which provided adequate pain control at a previous hospitalization.
His right posterior scalp inclusion cyst was drained yesterday and that spot feels a lot better.
Objective Data
-
Labs:
Laboratory Results
05/12/25
07:21
WBC 5.1
Hgb 11.7 L
Hct 36.1 L
Plt Count 160
Sodium 137
Potassium Pending
Chloride 107
Carbon Dioxide 25
BUN 9
Creatinine 0.9
Glucose 91
Calcium 8.9
Vital Signs:
Vital Signs
Temp Pulse Resp BP Pulse Ox
97.5 F 55 18 137/69 95
05/12/25 03:02 05/12/25 08:15 05/12/25 07:25 05/12/25 08:15 05/12/25 07:25
I&O
05/11/25 05/12/25 05/13/25
06:59 06:59 06:59
Intake Total 1110 / 1110 1560 / 1560
Balance 1110 / 1110 1560 / 1560
Review of Systems
-
History Source: Patient
Constitutional: Reports Chills
EENT: Reports Blurry Vision (Right eye vision is more blurry than yesterday) and Eye Pain (Right periorbital pain increased from yesterday)
Respiratory: Reports No Symptoms
Cardiac: Reports No Symptoms
Abdomen/GI: Reports No Symptoms
Musculoskeletal: Reports No Symptoms
Physical Exam
-
General: Well Developed, Well Nourished and Appears in Distress (Right periorbital and facial pain)
HEENT: Normocephalic, Atraumatic, Moist Mucous Membranes and Other (Right periorbital and maxillary area seems more sensitive to palpation)
Respiratory: Clear to Auscultation
Cardiac: Regular Rhythm and S1/S2
GI: Soft, Nontender, Normal Bowel Sounds and Distended
Genito-urinary: No Costovertebral Tender
Musculoskeletal: No Clubbing and No Cyanosis
Skin: Warm and Dry
Neuro: Awake, Alert, Oriented and Nonfocal/Grossly Intact
Data Reviewed
-
Total Time Spent with Patient (in minutes): 25
--- NOTE | 2025-05-12 08:50 | PHA.VAN.FU ---
Vancomycin Assessment / Plan
- Assessment
Renal Function: Stable
WBC's are: WNL
In the past 24 hrs, patient has been: Afebrile
Concomitant Antimicrobials: cefepime
- Dosing Plan
Adjust Regimen to: Vanc 1500mg Q12H starting 05/13 06
Dosing Comments: continue 1750mg through 1800 dose tonight
Based on prior trend listed in initial note, will do preemptive switching as expect patient slow to reach steady state but will accumulate over time with weight > 100kg
- Monitoring Plan
No level(s) ordered at this time: consider levels after at least 4 doses of 1500mg
- Follow Up
Pharmacy will continue to follow.
Vancomycin Follow UP
- -
Patient Age: 59
Patient Sex: Male
Vancomycin Day #: 2
Indication: Eye Or Ent Infection
Requesting Provider: Dr. Salas
Pertinent Antimicrobial Allergies:
daptomycin - rhabdomyolysis
Height / Weight:
Height 5 ft 10 in
Actual Weight 160.345 kg
Pertinent Past Medical History: BMI ~51, DM 2
- Vital Signs / Lab Results
Temp Pulse Resp BP Pulse Ox
97.5 F 55 18 137/69 95
05/12/25 03:02 05/12/25 08:15 05/12/25 07:25 05/12/25 08:15 05/12/25 07:25
Lab Results - Hematology
05/10/25 05/11/25 05/12/25
19:10 05:39 07:21
WBC 5.4 5.6 5.1
Lab Results - Chemistry
05/10/25 05/11/25 05/12/25
19:10 05:39 07:21
BUN 13 13 9
Creatinine 1.0 1.0 0.9
Estimated Creat Clear 120 > 125
Albumin 4.0 3.6
Microbiology Results
05/11/25 16:18 Gram Stain - Preliminary
Scalp
--- NOTE | 2025-05-12 09:06 | VATNOTE ---
Left arm accessory cephalic #22 IV fludhed easily with 3ml NSS. Pt. denies pain or burning. No redness or swelling noted.
[2025-05-12] MEDS: TORADOL 10 MG IV (10:33)
[2025-05-12] MEDS: STERILE WATER FOR INJECTION 10 ML IV (10:36)
[2025-05-12] MEDS: MAXIPIME 2000 MG IV (10:36)
--- NOTE | 2025-05-12 10:47 | CON.GS ---
Consultation
-
Date/Time Consultation Performed: 05/11/25
Requesting Provider: Aleksandar
Performing Provider: Eduarda
Reason for Consultation: Infected scalp cyst
Medical History
-
Chief Complaint: eye pain and swelling
History of Present Illness:
59M with right blepharitis and periorbital cellulitis with concurrent posterior scap pain from infected cyst. Sen 3 days prior and rx'ed bactrim which did not help. Hx notable for MRSA chest wall abscess requiring I&D. He had not noticed the scalp
lump prior.
Past Medical History
Past Medical History: Other (hest wall cellulitis/MRSA abscess status post I&D, COPD, paroxysmal atrial fibrillation on Pradaxa, hypertension, iron deficiency anemia, type 2 diabetes, hyperlipidemia, pulmonary nodule, ascending aorta aneurysm,
adrenal adenoma, bipolar disease, pulmonary embolism, sleep apnea, alcohol use disord)
Past Surgical History: Other (as per HPI)
Social History
Tobacco: Former Smoker
Alcohol: Former
Personal: Single
Family History
Family History: Reviewed & Noncontributory
Allergies / Home Medications
Allergy/AdvReac Type Severity Reaction Status Date / Time
daptomycin Allergy rhabdo Verified 05/10/25 17:18
�Medication �Instructions �Recorded �Confirmed �Type
albuterol 90 mcg-budesonide 80 2 inh inhalation Q6HPRN PRN 04/12/25 04/12/25 History
mcg/actuation HFA aerosol inhaler shortness of breath
(Airsupra)
albuterol sulfate 2.5 mg/0.5 mL 5 mg inhalation Q6H PRN shortness 04/12/25 04/12/25 History
solution for nebulization of breath
amiodarone 200 mg tablet 200 mg PO DAILY Blood Clot 04/12/25 04/12/25 History
Prevention/Tx
budesonide 160 mcg-glycopyr 9 2 inh inhalation BID 04/12/25 04/12/25 History
mcg-formot 4.8 mcg/actuation HFA Lung/Breathing Issues
inhaler (Breztri Aerosphere)
dabigatran etexilate 75 mg capsule 150 mg PO BID Blood Clot 04/12/25 04/16/25 History
(Pradaxa) Prevention/Tx
ferrous sulfate 325 mg (65 mg 325 mg PO Q48H Supplement 04/12/25 04/12/25 History
iron) tablet
fluoxetine 20 mg tablet 20 mg PO DAILY Fluid 04/12/25 04/12/25 History
Retention/Swelling
metformin 500 mg tablet 500 mg PO BID@0800,1700 Diabetes 04/12/25 04/12/25 History
pantoprazole 40 mg tablet,delayed 40 mg PO DAILY Gastrointestinal 04/12/25 04/12/25 History
release (Protonix) Issue
rosuvastatin 10 mg tablet (Crestor) 10 mg PO DAILY High Cholesterol 04/12/25 04/12/25 History
spironolactone 25 mg tablet 25 mg PO DAILY Fluid 04/12/25 04/12/25 History
Held on 04/19/25. Retention/Swelling
Instructions: Resume on
04/26/25.
tirzepatide 7.5 mg/0.5 mL 7.5 mg SC QWEEK Diabetes 04/12/25 05/11/25 History
subcutaneous pen injector
(Mounjaro)
cyanocobalamin (vitamin B-12) 1,000 mcg PO DAILY #30 tabs 04/19/25 Rx
1,000 mcg tablet (Vitamin B-12)
furosemide 40 mg tablet (Lasix) 40 mg PO DAILY PRN Fluid 04/19/25 04/12/25 Rx
Retention/Swelling #0 tabs
olanzapine 5 mg tablet 5 mg PO HS #0 tabs 04/19/25 Rx
oxycodone-acetaminophen 5 mg-325 1 tab PO Q8HPRN PRN moderate pain 04/19/25 Rx
mg tablet #5 tabs
sulfamethoxazole 800 2 tab PO BID Infection 05/11/25 History
mg-trimethoprim 160 mg tablet
Review of Systems
-
A 10 point review of systems was completed, and was negative except as per HPI.
Physical Exam
Vital Signs
Temp Pulse Resp BP Pulse Ox
97.6 F 55 18 137/69 95
05/12/25 07:00 05/12/25 08:15 05/12/25 07:25 05/12/25 08:15 05/12/25 07:25
05/11/25 05/12/25 05/13/25
06:59 06:59 06:59
Actual Weight 160.39 kg 160.345 kg
Body Mass Index (BMI) 50.7
Lab Results
05/12/25 07:21
05/12/25 07:21
WBC 5.1 10^3/uL (4.8-10.8) 05/12/25 07:21
Hgb 11.7 g/dL (13.0-18.0) L 05/12/25 07:21
Hct 36.1 % (39.0-52.0) L 05/12/25 07:21
Plt Count 160 10^3/uL (130-400) 05/12/25 07:21
Abs Immat Gran (auto) 0.0 10^3/uL (0-0.05) 05/12/25 07:21
Neutrophils % 64.0 % (42.2-75.2) 05/12/25 07:21
Physical Exam
General: Well Developed, Well Nourished and No Apparent Distress
HEENT: Other (right eye blepharitis periorbital cellulitis; posterior right scalp with 8mm tender erythematous firm subq nodule with scab)
Skin: Warm and Dry
Neuro: AO x 3
Psych: Calm
Data Reviewed
-
CT Scan: Image Personally Visualized and interpreted and Report Reviewed by me
Labs: Labs Reviewed by me
Old Records: Reviewed
Assessment / Plan
-
59M with infected inclusion cyst of right occiput, on pradaxa
Bedside I&D procedure in detail:
Informed consent obtained
Skin prepped with etoh
Skin infiltrated with 1% lido with epi
#11 blade used to create full thickness elliptical 3mm incision with return of small amount of blood
Cultures obtained
Too small to probe
Too small to pack
Dressed wtih dry sterile gauze
GS jose eduardo s/o pls call with ?s
--- NOTE | 2025-05-12 11:47 | CM ---
Reviewed the chart notes. Patient had ID procedure at beside today. Dry sterile gauze dressing to site. CM continues to be available to patient/family and is monitoring medical plan for needs at discharge.
Plan: Discharge back to sober house when medically stable.
[2025-05-12] MEDS: ROXICODONE 10 MG PO ×3 (12:33→21:23)
[2025-05-12 12:37] LABS: Glucose - Point of Care 108 mg/dl (70-99)
--- NOTE | 2025-05-12 14:08 | W.PN.UPDATE ---
Update Note
Progress Note Update
I saw and evaluated the patient. I reviewed the resident's plan of care and agree except for changes in my documentation. Patient states that he was seen at [facility] 3 days ago and was started on Bactrim for scalp infection. Then he woke
up Thursday with redness in the eyelid
59-year-old male with scalp infection and also redness around the right eye
On examination
Awake alert
Posterior right scalp small area of abscess/fluctuance
Right lower eyelid with a stye appearance and redness in the lower eyelid. Patient complains of blurry vision on exam, no redness in the conjunctiva pupils are equal reactive, no movements restriction of the extraocular muscles or tenderness with
movement
# Periorbital cellulitis/stye
Treat with vancomycin has history of MRSA
Because of the blurry vision we have also requested ophthalmology evaluation however I doubt any orbital cellulitis
He also has lower eyelid cellulitis.
Warm compresses ordered
Ophthalmology consulted to see if he needs I&D
# Scalp infection-S/P I&D 05/11/25
Cx with [facility]
Continue vancomycin, OK to stop Cefepime.
# Recent chest wall cellulitis with MRSA status post I&D by Dr. Paredes on 04/13/2025-chest wall looks scabbed
# COVID-19 infection 04/02/2025 treated with remdesivir at [facility]
# COPD-continue Spiriva, Breztri or equivalent. Not exacerbation
# Paroxysmal atrial fibrillation-continue Pradaxa, amiodarone
# Diabetes-hemoglobin A1c 7.8. Continue metformin Accu-Cheks and sliding scale coverage
# Hyperlipidemia-continue statin
# 4 mm pulmonary nodule-outpatient workup
# Aneurysmal dilatation of ascending aorta 4.4 centimeter-outpatient follow-up
# Adrenal adenoma-outpatient follow-up
# History of PE in 2014
# Bipolar disease-continue olanzapine, fluoxetine
# Sleep apnea-BiPAP
# Alcohol abuse sober for 90 days now goes to a partial program and in a sober house now
# Obesity with a BMI of 50-on Mounjaro 7.5 mg every week as outpatient-History of gastric bypass in 2004.
# Ex-smoker
# DVT prophylaxis-Pradaxa
# Full code
D/W RN at bed side
Part of this note was created using voice recognition system. Occasional wrong word or��sound alike� substitutions may have inadvertently occurred due to the inherent limitations of voice recognition software. If noted kindly bring it to my
attention for correction.
[2025-05-12 15:00] VITALS: BP 144/79
[2025-05-12 16:14] LABS: Glucose - Point of Care 95 mg/dl (70-99)
[2025-05-12] MEDS: ZYPREXA 5 MG PO (21:17)
[2025-05-12] MEDS: FEOSOL 325 MG PO (21:17)
[2025-05-12 22:01] LABS: Glucose - Point of Care 116 mg/dl (70-99)
[2025-05-12 23:25] VITALS: BP 168/69
[2025-05-13] MEDS: ROXICODONE 10 MG PO (05:19)
[2025-05-13] MEDS: VANCOCIN 530 MG IV (05:19)
[2025-05-13 07:00] VITALS: BP 101/59
[2025-05-13 07:45] LABS: Glucose - Point of Care 98 mg/dl (70-99)
[2025-05-13] MEDS: SPIRIVA RESPIMAT 2.5 MCG 2 PUFF INH (07:48)
[2025-05-13] MEDS: SYMBICORT 160/4.5 MCG INHALER 2 PUFF INH (07:48)
[2025-05-13 07:49] LABS: Hematocrit 36.9 % (39.0-52.0); Hemoglobin 12.0 g/dL (13.0-18.0); Mean Corp Hgb Conc. 32.5 g/dL (33.0-37.0); Mean Corpuscular Volume 78.5 fL (80.0-94.0); Nucleated Red Blood Cells % 0 % (-); Platelet Count 164 10^3/uL (130-400); Red Cell Dist. Width 19.1 % (11.5-14.5)
[2025-05-13 08:19] LABS: Blood Urea Nitrogen 9 mg/dl (9-20); Calcium 8.8 mg/dl (8.4-10.2); Carbon Dioxide 25 mmol/L (22-30); Chloride 107 mmol/L (98-107); Estimated Creatinine Clearance > 125 ml/min; Glucose 87 mg/dl (70-99); Potassium 4.5 mmol/L (3.5-5.1); Sodium 136 mmol/L (135-145); eGFR > 60.00
[2025-05-13] MEDS: PRADAXA 150 MG PO (09:04)
[2025-05-13] MEDS: PROZAC 20 MG PO (09:05)
[2025-05-13] MEDS: VITAMIN B-12 1000 MCG PO (09:05)
[2025-05-13] MEDS: PROTONIX 40 MG PO (09:05)
[2025-05-13] MEDS: CRESTOR 10 MG PO (09:05)
[2025-05-13] MEDS: PACERONE 200 MG PO (09:05)
[2025-05-13] MEDS: GLUCOPHAGE 500 MG PO (09:05)
[2025-05-13] MEDS: ALDACTONE 25 MG PO (09:06)
--- NOTE | 2025-05-13 09:27 | PHA.VAN.FU ---
Vancomycin Assessment / Plan
- Assessment
Renal Function: Stable
WBC's are: WNL
In the past 24 hrs, patient has been: Afebrile
- Dosing Plan
Continue: VANCO 1500MG Q12
- Monitoring Plan
No level(s) ordered at this time: CONSIDER LEVEL PRIOR TO 4TH MAINTENANCE DOSE
- Follow Up
Pharmacy will continue to follow.
Vancomycin Follow UP
- -
Patient Age: 59
Patient Sex: Male
Vancomycin Day #: 3
Indication: Eye Or Ent Infection
Requesting Provider: Dr. Salas
Pertinent Antimicrobial Allergies:
daptomycin - rhabdomyolysis
Height / Weight:
Height 5 ft 10 in
Actual Weight 160.345 kg
Pertinent Past Medical History: BMI ~51, DM 2
- Vital Signs / Lab Results
Temp Pulse Resp BP Pulse Ox
98 F 58 16 101/59 98
05/13/25 07:00 05/13/25 07:56 05/13/25 07:56 05/13/25 07:00 05/13/25 07:56
Lab Results - Hematology
05/10/25 05/11/25 05/12/25
19:10 05:39 07:21
WBC 5.4 5.6 5.1
05/13/25
07:15
WBC 5.0
Lab Results - Chemistry
05/10/25 05/11/25 05/12/25
19:10 05:39 07:21
BUN 13 13 9
Creatinine 1.0 1.0 0.9
Estimated Creat Clear 120 > 125
Albumin 4.0 3.6
05/13/25
07:15
BUN 9
Creatinine 0.8
Estimated Creat Clear > 125
Albumin
Microbiology Results
05/11/25 16:18 Wound Culture - Preliminary
Scalp Staphylococcus aureus
Gram Stain - Preliminary
05/11/25 16:18 Anaerobic Culture - Preliminary
Scalp Culture pending. Anaerobic cultures are examined after 3
days incubation. Additional information to follow.
[2025-05-13 12:20] LABS: Glucose - Point of Care 81 mg/dl (70-99)
--- NOTE | 2025-05-13 12:51 | CM ---
CM reviewed chart, noted dc order
Discussion with attending- no VN or wound care needs
Bedside meeting with pt
He plans for arrange for a Lyft home
Discharge Disposition- home, no needs- Lyft
--- NOTE | 2025-05-13 13:18 | W.DCSUMMARY ---
Addendum entered and electronically signed by Lidya Harp MD 05/13/25 13:38:
Attending�addendum:
I�saw�and�evaluated�the�patient.�I�reviewed�the�resident�s�note�and�agree�with�findings�and�plan�as�documented�in�the�resident�s�note.��
�patient seen and examined at bedside, denies any chest pain or shortness of breath, no abdominal pain, no nausea, no vomiting, no diarrhea or constipation.
Physical�exam:
GENERAL : Patient is awake, alert, oriented x3
HEENT: Nonicteric sclerae, PERRLA, EOMI. Oropharynx clear. Moist mucous membranes. Conjunctivae appear well perfused.
CHEST: Chest wall is nontender.
HEART: Regular rate and rhythm without murmurs.
LUNGS: Clear to auscultation bilaterally.
ABDOMEN: Soft, positive bowel sounds, nontender, no organomegaly.
RECTAL: Deferred.
SKIN: Scalp I&D healed, right lower eyelid redness but no abscess.
NEUROLOGIC: Cranial nerves II-XII intact without motor/sensory deficit.
�
Assessment/plan:
� Periorbital cellulitis/stye
Was given vancomycin has history of MRSA
Will be discharged on clindamycin and probiotic
Scalp infection-S/P I&D 05/11/25
Discharged on clindamycin and probiotic
# Recent chest wall cellulitis with MRSA status post I&D by Dr. Paredes on 04/13/2025-chest wall looks scabbed
# COVID-19 infection 04/02/2025 treated with remdesivir at [facility]
# COPD-continue Spiriva, Breztri or equivalent. Not exacerbation
# Paroxysmal atrial fibrillation-continue Pradaxa, amiodarone
# Diabetes-hemoglobin A1c 7.8. Continue metformin Accu-Cheks and sliding scale coverage
# Hyperlipidemia-continue statin
# 4 mm pulmonary nodule-outpatient workup
# Aneurysmal dilatation of ascending aorta 4.4 centimeter-outpatient follow-up
# Adrenal adenoma-outpatient follow-up
# History of PE in 2014
# Bipolar disease-continue olanzapine, fluoxetine
# Sleep apnea-BiPAP
# Alcohol abuse sober for 90 days now goes to a partial program and in a sober house now
# Obesity with a BMI of 50-on Mounjaro 7.5 mg every week as outpatient-History of gastric bypass in 2004.
# Ex-smoker
# DVT prophylaxis-Pradaxa
# Full code
�
Total�time�spent�on�today�s�encounter�was�40�minutes�which�included�time�spent�in�counseling�the�patient/family�regarding�diagnosis�and�treatment�plan�as�listed�above,�goals�of�care,�and�symptom�management.�Case�was�discussed�with�nursing�staff,�spec
ialists,�and�care�coordinators/case�management.�All�labs�and�imaging�personally�reviewed�by�me.�Remainder�the�time�spent�in�detailed�review�of�previous�records,�lab�data,�imaging,�and�other�medical�provider�documentation.
Original Note:
Documented by User: Angelika Castro MD, Resident 05/13/25 13:23
Discharge Summary
Discharge Data
Date of Admission: 05/10/25
Date of Discharge: 05/13/25
Total time spent discharging patient (in min): 45
-
Pending Results: No
Hospital Course
Mr. Patrick Zeng is a 59-year-old man with a PMH notable for chest wall cellulitis/MRSA abscess s/p I&D, COPD, paroxysmal A-fib (Pradaxa), hypertension, JORDAN, T2DM, HLD, pulmonary nodule, ascending aortic aneurysm, adrenal adenoma, bipolar
disorder, PE, JENNIFER, and AUD, who is presenting with right eye lower lid erythema, swelling, and pain, as well as a posterior right scalp boil with pain.
PLAN:
# Right sided blepharitis/periorbital cellulitis
History of chest wall cellulitis/MRSA abscess status post I&D
- blurry vision of the right eye and pain with extraocular movement
- CT scan of orbits showed no evidence of orbital extension, no evidence of orbital cellulitis or abscess. Right blepharitis
- Vancomycin 05/10/202505/13/2025. Transition to oral clindamycin 100 mg 3 times daily for 7 days, +10 days of probiotics, for discharge
- Cefepime 05/11/202505/12/2025, discontinued due to cultures showing gram positive cocci. Zosyn 05/10/202505/11/2025; stopped due to concerns of nephrotoxicity combination with vancomycin
� Consulted ophthalmology to evaluate for draining right lower eyelid vesicle, and evaluate for orbital cellulitis versus preseptal cellulitis. Even though CT did not demonstrate orbital cellulitis, patient had pain with extraocular movements.
� Right lower eyelid pustule drained overnight 05/13/2025, after which patient felt pain/pressure relief. He states his pain is 6 out of 10 down from 8 out of 10
# Right posterior scalp boil
- Antibiotics as above
�I&D by surgery 05/11/2025 significantly relieved pain
- Scalp wound cultures: MRSA
#Pain management (Right eye)
He states that Percocet 2 tabs every 4 hours as needed or IV Toradol effective for pain previously.
Nurse noted hyperfixation on receiving pain medication. On 05/13/2025, patient stated that his pain decreased after his right eye pustule drained.
- Oxycodone 10 mg every 6 hours as needed for severe pain. Tramadol 50 mg q6h as needed for moderate pain.
- Tylenol. IV toradol
- Weaning Dilaudid
#Paroxysmal atrial fibrillation
- Continue amiodarone
#Essential hypertension
- Continue spironolactone
Systolic blood pressure up to 160s, which may be due to pain. Will try to control pain first prior to adjusting antihypertensive regimen
Iron deficiency anemia
- Hemoglobin stable 11.8
- Continue ferrous sulfate
Type 2 diabetes
- Metformin 500 mg twice daily
- Insulin sliding scale
Hyperlipidemia
- Continue statin
Pulmonary nodule
Ascending aortic aneurysm
Adrenal adenoma
Bipolar disorder
- Continue fluoxetine, olanzapine
History of pulmonary embolism
COPD
- Continue Breztri
- Continue albuterol
History of gastric bypass
Obesity
Obstructive sleep apnea
- Patient on nightly BiPAP 20/16
Chronic lower extremity edema
- Continue Lasix
Alcohol use disorder
- Sober for 90 days
Former smoker
Full code
DVT prophylaxis�Pradaxa
GI prophylaxis�pantoprazole
Diabetic diet
Discharge Plan
-
Patient Disposition: Home (Routine Discharge)
Discharge Diagnosis/Procedures: Primary:
Right lower eyelid blepharitis
Posterior right scalp MRSA abscess
Secondary:
Chest wall MRSA abscess - healing
Type 2 diabetes
Persistence with pain medication
History of alcohol use disorder
Obstructive sleep apnea
Diet: Diabetic, Carb Controlled
Activity: As tolerated
Referrals:
Ari Carrington [Provider Group, Ophthalmology] - As needed
Referral Note: Right lower eyelid blepharitis. Hx MRSA abscess in right chest wall and right posterior scalp. Blurry right eye vision. Pain with right eye movements: abduction, adduction, intorsion. No orbital cellulitis, extension, abscess on CT
orbits
El Murray MD [Family Provider, Family Practice]
Additional Discharge Medication Instructions: Feel free to follow-up with Dr. Ari Carrington, an eye doctor, if needed for your right eye swelling/redness/infection.
Prescriptions:
New
clindamycin HCl [Cleocin HCl] 300 mg capsule
300 mg PO TID Qty: 30 0RF
Rx Instructions:
Please take clindamycin 300 mg (1) 3 times a day for 10 days for your skin infections
Probiotic 100 billion cell capsule
1 cap PO DAILY Qty: 14 0RF
Continued
metformin 500 mg Tablet
500 mg PO BID@0800,1700
amiodarone 200 mg Tablet
200 mg PO DAILY
spironolactone 25 mg Tablet
25 mg PO DAILY
albuterol sulfate 2.5 mg/0.5 mL Solution For Nebulization
5 mg INHALATION Q6H PRN (Reason: shortness of breath)
dabigatran etexilate [Pradaxa] 75 mg Capsule
150 mg PO BID
Breztri Aerosphere 160-9-4.8 mcg/actuation Hfa Aerosol Inhaler
2 inh INHALATION BID
Mounjaro 7.5 mg/0.5 mL Pen Injector
7.5 mg SC QWEEK
Airsupra 90-80 mcg/actuation Hfa Aerosol Inhaler
2 inh INHALATION Q6HPRN PRN (Reason: shortness of breath)
pantoprazole [Protonix] 40 mg Tablet,Delayed Release (Dr/Ec)
40 mg PO DAILY
ferrous sulfate 325 mg (65 mg iron) Tablet
325 mg PO Q48H
fluoxetine 20 mg Tablet
20 mg PO DAILY
rosuvastatin [Crestor] 10 mg Tablet
10 mg PO DAILY
olanzapine 5 mg Tablet
5 mg PO HS Qty: 0 0RF
cyanocobalamin (vitamin B-12) [Vitamin B-12] 1,000 mcg Tablet
1,000 mcg PO DAILY Qty: 30 0RF
furosemide [Lasix] 40 mg Tablet
40 mg PO DAILY PRN (Reason: Fluid Retention/Swelling) Qty: 0 0RF
oxycodone-acetaminophen 5-325 mg Tablet
1 tab PO Q8HPRN PRN (Reason: moderate pain) Qty: 5 0RF
Discontinued
sulfamethoxazole-trimethoprim 800-160 mg tablet
2 tab PO BID
Discharge Orders:
Discharge Patient (As Directed); Ordered 05/13/25
Ordered By: Lidya Harp
Discharge Date and Time
Print Language: YI

Documented by User: Lidya Harp MD 05/13/25 13:32
Discharge Summary
Discharge Data
Date of Admission: 05/10/25
Date of Discharge: 05/13/25
Discharge Plan
-
Patient Disposition: Home (Routine Discharge)
Discharge Diagnosis/Procedures: Primary:
Right lower eyelid blepharitis
Posterior right scalp MRSA abscess
Secondary:
Chest wall MRSA abscess - healing
Type 2 diabetes
Persistence with pain medication
History of alcohol use disorder
Obstructive sleep apnea
Diet: Diabetic, Carb Controlled
Activity: As tolerated
Referrals:
Ari Carrington [Provider Group, Ophthalmology] - As needed
Referral Note: Right lower eyelid blepharitis. Hx MRSA abscess in right chest wall and right posterior scalp. Blurry right eye vision. Pain with right eye movements: abduction, adduction, intorsion. No orbital cellulitis, extension, abscess on CT
orbits
El Murray MD [Family Provider, Family Practice]
Additional Discharge Medication Instructions: Feel free to follow-up with Dr. Ari Carrington, an eye doctor, if needed for your right eye swelling/redness/infection.
Prescriptions:
New
clindamycin HCl [Cleocin HCl] 300 mg capsule
300 mg PO TID Qty: 30 0RF
Rx Instructions:
Please take clindamycin 300 mg (1) 3 times a day for 10 days for your skin infections
Probiotic 100 billion cell capsule
1 cap PO DAILY Qty: 14 0RF
Continued
metformin 500 mg Tablet
500 mg PO BID@0800,1700
amiodarone 200 mg Tablet
200 mg PO DAILY
spironolactone 25 mg Tablet
25 mg PO DAILY
albuterol sulfate 2.5 mg/0.5 mL Solution For Nebulization
5 mg INHALATION Q6H PRN (Reason: shortness of breath)
dabigatran etexilate [Pradaxa] 75 mg Capsule
150 mg PO BID
Breztri Aerosphere 160-9-4.8 mcg/actuation Hfa Aerosol Inhaler
2 inh INHALATION BID
Mounjaro 7.5 mg/0.5 mL Pen Injector
7.5 mg SC QWEEK
Airsupra 90-80 mcg/actuation Hfa Aerosol Inhaler
2 inh INHALATION Q6HPRN PRN (Reason: shortness of breath)
pantoprazole [Protonix] 40 mg Tablet,Delayed Release (Dr/Ec)
40 mg PO DAILY
ferrous sulfate 325 mg (65 mg iron) Tablet
325 mg PO Q48H
fluoxetine 20 mg Tablet
20 mg PO DAILY
rosuvastatin [Crestor] 10 mg Tablet
10 mg PO DAILY
olanzapine 5 mg Tablet
5 mg PO HS Qty: 0 0RF
cyanocobalamin (vitamin B-12) [Vitamin B-12] 1,000 mcg Tablet
1,000 mcg PO DAILY Qty: 30 0RF
furosemide [Lasix] 40 mg Tablet
40 mg PO DAILY PRN (Reason: Fluid Retention/Swelling) Qty: 0 0RF
oxycodone-acetaminophen 5-325 mg Tablet
1 tab PO Q8HPRN PRN (Reason: moderate pain) Qty: 5 0RF
Discontinued
sulfamethoxazole-trimethoprim 800-160 mg tablet
2 tab PO BID
Discharge Orders:
Discharge Patient (As Directed); Ordered 05/13/25
Ordered By: Lidya Harp
Discharge Date and Time
Print Language: YI
[2025-05-13 13:30] VITALS: BP 117/68
== END 2025-05-13 13:59 | disposition home or self-care (01) | DRG 603 ==
LOC: 2 NORTH 23:50
PROVIDERS: Physician Assistant; ADMITTING PHYSICIAN Hospitalist; ATTENDING PHYSICIAN General Practice; EMERGENCY PHYSICIAN Student in an Organized Health Care Education/Training Program; FAMILY PHYSICIAN Family Medicine; OTHER PHYSICIAN Surgery
PROC: 0H90XZX Drainage of Scalp Skin, External Approach, Diagnostic (ICD-10-PCS; 2025-05-11)
DX: L08.89 Other specified local infections of the skin and subcutaneous tissue (principal); Z68.43 Body mass index [BMI] 50.0-59.9, adult; L03.213 Periorbital cellulitis; L72.0 Epidermal cyst; H00.012 Hordeolum externum right lower eyelid; B95.62 Methicillin resistant Staphylococcus aureus infection as the cause of diseases classified elsewhere; I48.0 Paroxysmal atrial fibrillation; I10 Essential (primary) hypertension; D50.9 Iron deficiency anemia, unspecified; E11.9 Type 2 diabetes mellitus without complications; R91.1 Solitary pulmonary nodule; I71.21 Aneurysm of the ascending aorta, without rupture; D35.00 Benign neoplasm of unspecified adrenal gland; F31.9 Bipolar disorder, unspecified; J44.9 Chronic obstructive pulmonary disease, unspecified; G47.33 Obstructive sleep apnea (adult) (pediatric); F10.10 Alcohol abuse, uncomplicated; E66.9 Obesity, unspecified; Z79.899 Other long term (current) drug therapy; Z86.16 Personal history of COVID-19; Z86.711 Personal history of pulmonary embolism; Z87.891 Personal history of nicotine dependence
CPT/HCPCS: 70481; 80048; 80053; 82962; 85025; 87070; 87075; 87147; 87186; 87205; 94640; 96374; 96376; 99285; Q9967